=== PATIENT | female | born 1960 | race Caucasian/White ===

== ENCOUNTER 2019-07-28 16:00 | Inpatient (IN) | payer OTHER, SELFPAY ==
[~2019-07-28] VITALS: Ht 162.6 cm; Wt 78.2 kg
--- OUTSIDE RECORDS SUMMARY | 2019-07-28 16:03 | XMS REPORT ---
Author Author MARIBELL Lemus Organization Unknown Address Unknown Phone Care Team Providers Care Assembly Member Name Role Phone Bree Lemus PP Reason for Referral No Reason for Referral was given. History of Present Illness No HPI available. Problems * Normal Routine History And Physical Adult (V70.0); (Active) * Forearm Injury (959.3); (Active) Medication * No Active Medications Allergies and Adverse Reactions * No Known Drug Allergies (Active) Past Medical History * No Significant Medical History Social History * Never A Smoker (Active) Advance Directives * No Advance Directives available. Encounters * AUDIT 07/30/2012
--- OUTSIDE RECORDS SUMMARY | 2019-07-28 16:03 | XMS REPORT ---
Author Author MARIBELL Lemus Organization Unknown Address Unknown Phone Care Team Providers Care Cook Pie Name Role Phone Bree Lemus PP Reason [...] No Advance Directives available. Encounters * AUDIT 05/28/2012
--- OUTSIDE RECORDS SUMMARY | 2019-07-28 16:03 | XMS REPORT | Continuity of Care Document ---
Author Author [facility] Organization [facility] Address Unknown Phone Unavailable Care Team Providers Care Tape Sewing Machine Operator Name Role Phone [employer] Unavailable Un available Problems Problem Status Onset Date Classification Date Reported Comments Source Forearm Injury Active 07/30/2012 [facility] Medications Medication Details Route Status Patient Instructions Ordering Provider Order Date Source No Active Medications No Activ e Medications Active [facility] Allergies, Adverse Reactions, Alerts Substance Category Reaction Severity Reaction type Status Date Reported Comments Source No Known Drug Allergies drug a llergy drug aller gy Active [facility] Immunizations No Data Provided for This Section Results No Data Provided for This Section Pathology Reports No Data Provided for This Section Diagnostic Reports No Data Provided for This Section Consultation Notes No Data Provided for This Section Discharge Summaries No Data Provided for This Section History and Physicals No Data Provided for This Section Vital Signs No Data Provided for This Section Encounters Location Location Details Encounter Type Encounter Number Reason For Visit Attending Provider ADM Date DC Date Status Source AUDIT [id number] 05/28/2012 05/28/2012 [facility] AUDIT [id number] 06/04/2012 06/04/2012 [facility] AUDIT [id number] 07/30/2012 07/30/2012 [facility] Procedures No Data Provided for This Section Assessment and Plan No Data Provided for This Section Plan of Care No Data Provided for This Section Social History Social History Date Source Never A Smoker (Active) 07/30/2012 [facility] Family History No Data Provided for This Section Advance Directives Order Name Results Value Date Source Advance Directives Advance Dir ectives No Advance Directives available. 07/30/2012 [facility] Advance Directives Advance Dir ectives No Advance Directives available. 06/04/2012 [facility] Advance Directives Advance Dir ectives No Advance Directives available. 05/28/2012 [facility] Functional Status No Data Provided for This Section
--- OUTSIDE RECORDS SUMMARY | 2019-07-28 16:03 | XMS REPORT ---
Author Author MARIBELL Lemus Organization Unknown Address Unknown Phone Care Team Providers Care Information Technology Project Manager Name Role Phone Bree Lemus PP Reason [...] No Advance Directives available. Encounters * AUDIT 06/04/2012
[2019-07-28] MEDS ORDERED: SODIUM CHLORIDE 0.9% 1000ML 1,000 ML IV STA (16:30)
--- NOTE | 2019-07-28 16:45 | Emergency Department Note ---
History of Present Illnes History of Present Illness Chief Complaint: General Medicine Complaints History of Present Illness This is a 58 year old female . maria g to ed by c/o ams and fall x 2 days Historian: Patient Arrival Mode: Car Radiation: non-radiation, back, neck, extremity, abdomen, periumbilical, flank, proximal, distal, other Onset quality: sudden Duration (how long): day(s) (2 days) Progression: worsening Context: recent illness, recent surgery, recent immobilization, recent travel, trauma/injury, new medications, hx of DVT/PE, non-compliance w/ medications, other Relieving factors: none Exacerbating factors: none Treatments prior to arrival: none Past Medical/Family History Physician Review I have reviewed the patient's past medical and family history. Any updates have been documented here. Past Medical History Recent Fever: No Clinical Suspicion of Infectio: No New/Unexplained Change in Ment: No Past Medical History: Hypothyroidism Social History Smoking Cessation: Never Smoker Alcohol Use: None Any Illegal Drug Use: No TB Exposure/Symptoms: No Family History Family history of heart diseas: No Other Any Pre-Existing Lines (PICC,: No Review of Systems ROS Narrative Unable to obtain ROS: Unable to obtain due to, altered mental status Review of Systems Constitutional: diaphoresis, fever Respiratory: cough, hemoptysis Psychological: other (ams) Endocrine: excessive sweating Review of other systems All other systems reviewed and negative. Physical Exam Related Data Allergies: Coded Allergies: No Known Allergies (Unverified , 07/28/19) Triage Vital Signs Vital Signs Date Time Temp Pulse Resp B/P (MAP) Pulse Ox O2 Delivery O2 Flow Rate FiO2 07/28/19 16:21 Vital signs reviewed: Yes Physical Exam CONSTITUTIONAL Constitutional: ill appearing HENT HENT: normocephalic, atraumatic HENT L/R: left ext ear normal, right ext ear normal EYES Eyes: conjunctivae normal NECK Neck: supple PULMONARY Pulmonary: breath sounds normal; respiratory distress CARDIOVASCULAR Cardiovascular: tachycardia; normal rate GASTROINTESTINAL Abdominal: nontender, bowel sounds normal GENITOURINARY Genitourinary: exam deferred SKIN Skin: warm, dry; erythema, jaundiced MUSCULOSKELETAL Musculoskeletal: edema, tenderness NEUROLOGICAL pt lethargic PSYCHOLOGICAL Exam - additional comments 58y f presented to ed c/o ams and fall on set sx 2 days ago worse today pt lethargic Results Imaging Impressions Procedure: [id number] CT/CT CERVICAL SPINE WO Exam Date: 07/28/19 Exam Time: 1644 REPORT STATUS: Signed Examination: CT CERVICAL SPINE WO CONTRAST HISTORY:Neck pain and injury after syncope. COMPARISON:None. TECHNIQUE: Multidetector helical axial images were obtained without contrast from the foramen magnum to T1. Coronal and sagittal reformatted images were done. Bone and soft tissue windows were evaluated. Dose modulation, iterative reconstruction, and/or weight based adjustment of the mA/kV was utilized to reduce the radiation dose to as low as reasonably achievable. FINDINGS: Alignment:Normal alignment and lordosis. Vertebrae: Normal height and density. No acute fracture, infection or neoplasm. Disc space heights: Normal height. Caliber of spinal canal: Developmentally normal. Posterior fossa and craniocervical junction: Foramen magnum patent. No Chiari 1 malformation. Soft tissues: No abnormality. Degenerative changes: No disc bulge/ herniation or foraminal or canal stenosis. Visualized lung apices: No abnormalities. IMPRESSION: No acute abnormalities. Signed by: Dr. Adry Barclay M.D. on 07/28/2019 5:41 PM Procedure: [id number] CT/CT BRAIN WO Exam Date: 07/28/19 Exam Time: 1644 REPORT STATUS: Signed Examination: CT head without contrast Clinical Indication: Syncope. Head injury. Technique: Transaxial noncontrast images from the skull base through the vertex were obtained. Sagittal and coronal reformatted images were done. Dose modulation, iterative reconstruction, and/or weight based adjustment of the mA/kV was utilized to reduce the radiation dose to as low as reasonably achievable. Comparison: None. Findings: Scalp: No abnormalities. Bones: Intact. No fractures. No blastic or lytic lesions. Brain sulci: Appropriate for patient's age. Ventricles: Normal in size and configuration. No hydrocephalus. . Extra-axial space: No abnormalities. Parenchyma: There are subtle patchy areas of low-attenuation within subcortical and periventricular white matter, nonspecific, but could represent microvascular ischemic disease. No masses, hemorrhage, or acute cortical based vascular insults. Cortical based, wedge-shaped encephalomalacia of the posterior and inferior right cerebellum. Suprasellar region: No abnormalities. Craniocervical junction: The foramen magnum is patent. No Chiari one malformation. Incidental findings: Atherosclerotic calcification of the cavernous and supraclinoid internal carotid arteries. Partially visualized opacification of the inferior left frontal sinus/left anterior ethmoid air cells. Impression: 1. No acute intracranial finding. 2. Chronic microvascular ischemic change. 3. Chronic right inferior cerebellar infarct Signed by: Dr. Adry Barclay M.D. on 07/28/2019 5:29 PM Dictated By: ADRY MINA MD 28 Transcribed By: MONIKA on 07/28/191728 Procedure: [id number] DX/CHEST SINGLE (PORTABLE) Exam Date: 07/28/19 Exam Time: 1645 REPORT STATUS: Signed Examination: Single AP view of the chest. COMPARISON: None. INDICATION: Passed out twice IMPRESSION: 1. Lines and Tubes: None 2. Lungs are well inflated. Hazy opacity in the right infrahilar region, which may represent atelectasis or aspiration. No consolidation or effusion. 3. Cardiomediastinal silhouette is normal. Pulmonary vasculature is normal. 4. No acute bony abnormalities. Signed by: Dr. Andrews Haile M.D. on 07/28/2019 5:27 PM Dictated By: ANDREWS HAILE MD 26 Transcribed By: MONIKA on 07/28/191726 Procedures 12 Lead ECG Interpretation Hand Cutter Apprentice: Interpreted by ED physician Date: July 28, 2019 Time: 16:40 Prior RESPIRATORY THERAPY MANAGER tracings: reviewed Rhythm: sinus tachycardia Rate: tachycardia BPM: 131 QRS axis: left Critical Care Time Subsequent provider I assumed direction of critical care for this patient from another provider of my specialty. Assessment & Plan Reassessment Reassessment time: 16:44 Reassessment 58y f presented to ed c/o ams /falls x 2 days pt lethargic - ordered lab ekg cxr ct brain cervical uds - medicated w/ ns bolus Assessment & Plan Final Impression: (1) AMS (altered mental status) Assessment & Plan 4O yo F arrived to the ED with AMS, pt discussed and signed out to Dr. Aguilar to follow up labs and imaging Pt will require admission for further work up and management Depart Disposition: ADMITTED Last Vital Signs Date Time Temp Pulse Resp B/P (MAP) Pulse Ox O2 Delivery O2 Flow Rate FiO2 07/28/19 16:21 Home Meds Reported Medications Metoprolol Succinate (TOPROL XL) 50 Mg Tab.er.24h, 50 MG PO BID, #30 TAB 08/08/19 Levothyroxine Sodium (LEVOTHYROXINE SODIUM) 100 Mcg Tablet, 100 MCG PO DAILY@0600 08/08/19 Losartan Potassium (LOSARTAN POTASSIUM) 25 Mg Tablet, 50 MG PO BID 08/08/19 Discontinued Reported Medications [Zolpidem] No Conflict Check 07/28/19 Levothyroxine Sodium (LEVOTHYROXINE SODIUM) 150 Mcg Tablet 07/28/19 Clonidine Hcl (CLONIDINE HCL) 0.3 Mg Tablet 07/28/19 Clonidine Hcl (CLONIDINE HCL) 0.2 Mg Tablet 07/28/19 Medications in the ED Sodium Chloride 1,000 ml @ 0 mls/hr Q0M STAT IV ; Start 07/28/19 at 16:30; Stop 07/28/19 at 16:31; Status DC DIMPLE RUSSO DO July 28, 2019 16:45
[2019-07-28] MEDS ORDERED: CLONIDINE HCL0.2 MG (16:47)
[2019-07-28] MEDS ORDERED: ZOLPIDEM (16:47)
[2019-07-28] MEDS ORDERED: CLONIDINE HCL0.3 MG (16:47)
[2019-07-28] MEDS ORDERED: LEVOTHYROXINE150 MCG (16:47)
--- NOTE | 2019-07-28 17:30 | Diagnostic Imaging Report ---
Examination: Single AP view of the chest. COMPARISON: None. INDICATION: Passed out twice IMPRESSION: 1. Lines and Tubes: None 2. Lungs are well inflated. Hazy opacity in the right infrahilar region, which may represent atelectasis or aspiration. No consolidation or effusion. 3. Cardiomediastinal silhouette is normal. Pulmonary vasculature is normal. 4. No acute bony abnormalities. Signed by: Dr. Sterling Haile M.D. on 07/28/2019 5:27 PM
--- NOTE | 2019-07-28 17:33 | Diagnostic Imaging Report ---
Examination: CT head without contrast Clinical Indication: Syncope. Head injury. Technique: Transaxial noncontrast images from the skull base through the vertex were obtained. Sagittal and coronal reformatted images were done. Dose modulation, iterative reconstruction, and/or weight based adjustment of the mA/kV was utilized to reduce the radiation dose to as low as reasonably achievable. Comparison: None. Findings: Scalp: No abnormalities. Bones: Intact. No fractures. No blastic or lytic lesions. Brain sulci: Appropriate for patient's age. Ventricles: Normal in size and configuration. No hydrocephalus. . Extra-axial space: No abnormalities. Parenchyma: There are subtle patchy areas of low-attenuation within subcortical and periventricular white matter, nonspecific, but could represent microvascular ischemic disease. No masses, hemorrhage, or acute cortical based vascular insults. Cortical based, wedge-shaped encephalomalacia of the posterior and inferior right cerebellum. Suprasellar region: No abnormalities. Craniocervical junction: The foramen magnum is patent. No Chiari one malformation. Incidental findings: Atherosclerotic calcification of the cavernous and supraclinoid internal carotid arteries. Partially visualized opacification of the inferior left frontal sinus/left anterior ethmoid air cells. Impression: 1. No acute intracranial finding. 2. Chronic microvascular ischemic change. 3. Chronic right inferior cerebellar infarct Signed by: Dr. Adry Barclay M.D. on 07/28/2019 5:29 PM
--- NOTE | 2019-07-28 17:44 | Diagnostic Imaging Report ---
Examination: CT CERVICAL SPINE WO CONTRAST HISTORY:Neck pain and injury after syncope. COMPARISON:None. TECHNIQUE: Multidetector helical axial images were obtained without contrast from the foramen magnum to T1. Coronal and sagittal reformatted images were done. Bone and soft tissue windows were evaluated. Dose modulation, iterative reconstruction, and/or weight based adjustment of the mA/kV was utilized to reduce the radiation dose to as low as reasonably achievable. FINDINGS: Alignment:Normal alignment and lordosis. Vertebrae: Normal height and density. No acute fracture, infection or neoplasm. Disc space heights: Normal height. Caliber of spinal canal: Developmentally normal. Posterior fossa and craniocervical junction: Foramen magnum patent. No Chiari 1 malformation. Soft tissues: No abnormality. Degenerative changes: No disc bulge/ herniation or foraminal or canal stenosis. Visualized lung apices: No abnormalities. IMPRESSION: No acute abnormalities. Signed by: Dr. Adry Barclay M.D. on 07/28/2019 5:41 PM
--- NOTE | 2019-07-28 18:15 | NUR ---
educated patient on need for urine sample. Unable to obtain one at this time patient states that she needs hydration first. Initiated a 1000 mL of normal saline and gave patient the call light to press when she can provide a sample. Patient verbalized understanding.
[2019-07-28 18:21] LABS: BASOPHILS % 0.3 % (0.0-1.0); EOSINOPHILS # (AUTO) 3.3 (0.0-0.4); EOSINOPHILS % 27.6 % (0.0-6.0); HEMATOCRIT 37.1 % (34.2-44.1); LYMPHOCYTES # (AUTO) 0.9 (1.0-3.2); LYMPHOCYTES % 7.8 % (18.0-39.1); MEAN CORPUSCULAR HGB CONC 32.3 g/dL (31-35); MEAN CORPUSCULAR VOLUME 98.9 fL (81-99); MONOCYTES % 8.7 % (4.4-11.3); NEUTROPHILS # (AUTO) 6.5 (2.1-6.9); NEUTROPHILS % 55.2 % (38.7-80.0); PLATELET COUNT 347 x10e3/uL (140-360); RED BLOOD COUNT 3.75 x10e6/uL (3.6-5.1); RED CELL DISTRIBUTION WIDTH 13.3 % (11.7-14.4)
[2019-07-28 18:30] LABS: INR 0.94; PROTHROMBIN TIME 13.1 seconds (11.9-14.5)
[2019-07-28 18:37] LABS: ALANINE AMINOTRANSFERASE 65 IU/L (0-55); ALBUMIN 3.6 g/dL (3.5-5.0); ALBUMIN/GLOBULIN RATIO 0.9 (0.8-2.0); ALKALINE PHOSPHATASE 91 IU/L (40-150); ANION GAP 17.7 mmol/L (8-16); BLOOD UREA NITROGEN 35 mg/dL (7-26); BUN/CREATININE RATIO 31 (6-25); CARBON DIOXIDE 22 mmol/L (22-29); CHLORIDE 109 mmol/L (98-107); CREATINE KINASE 49 IU/L (29-168); CREATININE, SERUM 1.13 mg/dL (0.57-1.11); EST GLOMERULAR FILTRATION RATE 49 ML/MIN (60-); GLUCOSE 123 mg/dL (74-118); POTASSIUM 3.7 mmol/L (3.5-5.1); SODIUM 145 mmol/L (136-145)
--- OUTSIDE RECORDS SUMMARY | 2019-07-28 18:48 | XMS REPORT ---
Author Author [facility] Organization [facility] Address [facility] [place] [address] Phone Unavailable Care Team Providers Care Hat Band Attacher Name Role Phone Parrish RUSSO Attphyparrish Unavailable Problems Condition Name Condition Details Condition Category Status Onset Date Resolution Date Last Treatment Date Treating Clinician Comments Source Forearm Injury Fore arm Injury Active 07/30/2012 [facility] Problem Active 2012-07-30 12:22:48 [facility] Allergies, Adverse Reactions, Alerts Allergy Name Allergy Type Status Severity Reaction(s) Onset Date Inacti ve Date Treating Clinician Comments Source No Known Drug Allergies No Known Drug Allergies Active [facility] Social History Social Habit Start Date Stop Date Quantity Comments Source Social History 2012-07-30 12:22:48 2012-07-30 12:22:48 [facility] Medications Ordered Medication Name Filled Medication Name Start Date Stop Da te Current Medication? Ordering Clinician Indication Dosage Frequency Signature (SIG) Comments Components Source No Active Medications 2012-07-30 12:22:48 Yes No Active Medications [facility] Procedures This patient has no known procedures. Encounters Start Date/Time End Date/Time Encounter Type Admission Type [facility] Care Department Encounter ID Source 2019-03-04 16:52:00 2019-03-04 16:52:00 Emergency E [id number] [facility] 2018-09-16 11:08:00 2018-09-16 11:08:00 Emergency E [id number] 2018-06-28 08:55:00 2018-06-28 08:55:00 Emergency E [id number] 2018-06-10 05:05:00 2018-06-10 05:05:00 Emergency E [id number] 2012-07-30 07:23:07 2012-07-30 12:22:48 AUDIT [facility] [id number] [facility] 2012-07-30 07:23:07 2012-07-30 07:22:48 Outpatient [facility] [id number] 2012-06-04 05:52:29 2012-06-04 10:52:10 AUDIT [facility] [id number] [facility] 2012-06-04 05:52:29 2012-06-04 05:52:10 Outpatient [facility] [id number] 2012-05-28 01:19:51 2012-05-28 06:19:33 AUDIT [facility] [id number] [facility] 2012-05-28 01:19:51 2012-05-28 01:19:33 Outpatient [facility] [id number] Results Test Description Test Time Test Comments Results Result Comments Source CT CERVICAL SPINE WO 2019-07-28 17:30:00 [place] [id number] Patient Name: MARIBELL IVY MR #: [id number] : 1960 Age/Sex: 58/F Req #: [id number] Adm Physician: Ordered by: DIMPLE RUSSO DO Report #: [id number] Location: ER Room/Bed: Procedure: [id number] CT/CT CERVICAL SPINE WO Exam Date: 07/28/19 Exam Time: 1645 REPORT STATUS: Signed Examination: CT CERVICAL SPINE WO CONTRAST HISTORY:Neck pain and injury after syncope. COMPARISON:None. TECHNIQUE: Multidetector helical axial images were obtained without contrast from the foramen magnum to T1. Coronal and sagittal reformatted images were done. Bone and soft tissue windows were evaluated. Dose modulation, iterative reconstruction, and/or weight based adjustment of the mA/kV was utilized to reduce the radiation dose to as low as reasonably achievable. FINDINGS: Alignment:Normal alignment and lordosis. Vertebrae: Normal height and density. No acute fracture, infection or neoplasm. Disc space heights: Norm al height. Caliber of spinal canal: Developmentally normal. Posterior fossa and craniocervical junction: Foramen magnum patent. No Chiari 1 malformation. Soft tissues: No abnormality. Degenerative changes: No disc bulge/ herniation or foraminal or canal stenosis. Visualized lung apices: No abnormalities. IMPRESSION: No acute abnormalities. Signed by: Dr. Adry Barclay M.D. on 07/28/2019 5:41 PM Dictated By: ADRY MINA MD 40 Transcribed By: MONIKA on 07/28/191740 COPY TO: DIMPLE RUSSO DO CT BRAIN WO 2019-07-28 17:27:00 [place] [address] Patient Name: MARIBELL IVY MR #: [id number] : 1960 Age/Sex: 58/F Req #: [id number] [facility] Physician: Ordered by: DIMPLE RUSSO DO Report #: [id number] Location: ER Room/Bed: Procedure: [id number] CT/CT BRAIN WO Exam Date: 07/28/19 Exam Time: 1645 REPORT STATUS: Signed Examination: CT head without contrast Clinical Indication: Syncope. Head injury. Technique: Transaxial noncontrast images from the skull base through the vertex were obtained. Sagittal and coronal reformatted images were done. Dose modulation, iterative reconstruction, and/or weight based adjustment of the mA/kV was utilized to reduce the radiation dose to as low as reasonably achievable. Comparison: None. Findings: Scalp: No abnormalities. Bones: Intact. No fractures. No blastic or lytic lesions. Brain sulci: Appropriate for patient's age. Ventricles: Normal in size and configuration. No hydrocephalus. . Extra- axial space: No abnormalities. Parenchyma: There are subtle patchy areas of low-attenuation within subcortical and periventricular white matter, nonspecific, but could represent microvascular ischemic disease. No masses, hemorrhage, or acute cortical based vascular insults. Cortical based, wedge- shaped encephalomalacia of the posterior and inferior right cerebellum. Suprasellar region: No abnormalities. Craniocervical junction: The foramen magnum is patent. No Chiari one malformation. Incidental findings: Atherosclerotic calcification of the cavernous and supraclinoid internal carotid arteries. Partially visualized opacification of the inferior left frontal sinus/left anterior ethmoid air cells. Impression: 1. No acute intracranial finding. 2. Chronic microvascular ischemic change. 3. Chronic right inferior cerebellar infarct Signed by: Dr. Adry Barclay M.D. on 07/28/2019 5:29 PM Dictated By: ADRY MINA MD 28 Transcribed By: MONIKA on 07/28/191728 COPY TO: DMIPLE RUSSO DO CHEST SINGLE (PORTABLE) 2019-07-28 17:25:00 [place] [address] Patient Name: MARIBELL IVY MR #: [id number] : 1960 Age/Sex: 58/F Req #: [id number] Adm Physician: Ordered by: DIMPLE RUSSO DO Report #: [id number] Location: Room/Bed: Procedure: [id number] DX/CHEST SINGLE (PORTABLE) Exam Date: 07/28/19 Exam Time: 1644 REPORT STATUS: Signed Examination: Single AP view of the chest. COMPARISON: None. INDICATION: Passed out twice IMPRESSION: 1. Lines and Tubes: None 2. Lungs are well inflated. Hazy opacity in the right infrahilar region, which may represent atelectasis or aspiration. No consolidation or effusion. 3. Cardiomediastinal silhouette is normal. Pulmonary vasculature is normal. 4. No acute bony abnormalities. Signed by: Dr. Andrews Haile M.D. on 07/28/2019 5:27 PM Dictated By: ANDREWS HAILE MD 26 Transcribed By: MONIKA on 07/28/191726 COPY TO: DIMPLE RUSSO DO
--- OUTSIDE RECORDS SUMMARY | 2019-07-28 18:48 | XMS REPORT | Continuity of Care Document ---
Author Author [facility] Address Unknown Phone Unavailable Care Team Providers Care Garden Tractor Mechanic Name Role Phone [facility] [facility] Unavailable Un available Problems Problem Status Onset Date Classification Date Reported Comments Source Forearm Injury Active 07/30/2012 [facility] Medications Medication Details Route Status Patient Instructions Ordering Provider Order Date Source No Active Medications No Activ e Medications Active [facility] Allergies, Adverse Reactions, Alerts Substance Category Reaction Severity Reaction type Status Date Reported Comments Source No Known Drug Allergies drug a llergy drug aller gy Active [facility] Immunizations No Data Provided for This [...] ADM Date DC Date Status Source AUDIT [id number] 05/28/2012 05/28/2012 [facility] AUDIT [id number] 06/04/2012 06/04/2012 [facility] AUDIT [id number] 07/30/2012 07/30/2012 [facility] Procedures No Data Provided for This Section Assessment and Plan No Data Provided for This Section Plan of Care No Data Provided for This Section Social History Social History Date Source Never A Smoker (Active) 07/30/2012 [facility] Family History No Data Provided for This Section Advance Directives Order Name Results Value Date Source Advance Directives Advance Dir ectives No Advance Directives available. 07/30/2012 [facility] Advance Directives Advance Dir ectives No Advance Directives available. 06/04/2012 [facility] Advance Directives Advance Dir ectives No Advance Directives available. 05/28/2012 [facility] Functional Status No Data Provided for This Section
[2019-07-28 18:56] LABS: SALICYLATE < 5.0 mg/dL (0-30)
[2019-07-28 18:57] LABS: THYROID STIMULATING HORMONE 0.346 uIU/mL (0.350-4.940)
--- NOTE | 2019-07-28 18:59 | NUR ---
report given to Fco BARFIELD
--- NOTE | 2019-07-28 19:04 | NUR ---
Covid swab obtained
[2019-07-28] MEDS ORDERED: METOPROLOL TARTRATE INJ 1 MG/ML VIAL IV ONE ×2 (19:15→22:00)
[2019-07-28] MEDS: METOPROLOL TARTRATE INJ 1 MG/ML VIAL IV PRN (19:31)
--- NOTE | 2019-07-28 19:36 | NUR ---
DR. ZIMMERMAN AT PTS BEDSIDE, NEW ORDERS RECEIVED
[2019-07-28] MEDS ORDERED: IOPAMIDOL 370 MG/ML 200 ML INFUS..BTL INJ ONE (19:41)
[2019-07-28] MEDS ORDERED: SODIUM CHLORIDE 0.9% 50ML 50 ML ONE (19:42)
[2019-07-28] MEDS ORDERED: SODIUM CHLORIDE 0.9% 1000ML 1,000 ML ONE (19:44)
[2019-07-28] MEDS: SODIUM CHLORIDE 0.9% 1000ML 1,000 ML IV SCH (19:50)
--- NOTE | 2019-07-28 19:58 | NUR ---
straight cath performed per orders by shad dumas rn using sterile technique. 150cc slightly hazy yellow urine return noted. pt tolerated procedure s complaint. specimen collected, labelled and sent to lab.
[2019-07-28 20:07] LABS: BILIRUBIN,URINE SMALL (NEGATIVE); CLARITY,URINE SL CLOUDY (CLEAR); COLOR,URINE YELLOW (YELLOW); KETONES,URINE 1+ (NEGATIVE); LEUKOCYTE ESTERASE ,URINE NEGATIVE (NEGATIVE); NITRITE,URINE NEGATIVE (NEGATIVE); PROTEIN,URINE DIPSTICK 1+ (NEGATIVE); URINE UROBILINOGEN 0.2 mg/dL (0.2 - 1)
[2019-07-28 20:14] LABS: AMPHETAMINES SCREEN,URINE NEGATIVE (NEGATIVE); BENZODIAZEPINES SCREEN,URINE POSITIVE (NEGATIVE); PHENCYCLIDINE SCREEN,URINE NEGATIVE (NEGATIVE)
[2019-07-28 20:29] LABS: BACTERIA,URINE MODERATE /HPF; EPITHELIAL CELLS,URINE FEW /LPF; RBC,URINE 0-5 /HPF (0-5)
[2019-07-28 20:30] LABS: AMORPHOUS SEDIMENT,URINE MODERATE (FEW)
--- NOTE | 2019-07-28 20:56 | Diagnostic Imaging Report ---
EXAMINATION: CT scan of the chest with contrast. TECHNIQUE: Spiral CT images of the chest were performed from the lung apices to the level of the adrenal glands after the intravenous administration of 100 cc of Isovue 370. Coronal and sagittal reformatted images were obtained. COMPARISON: Portable chest 07/28/2019 CLINICAL HISTORY:Syncope, weakness, AMS, lung nodule DISCUSSION: LINES/TUBES: None. LUNGS AND AIRWAYS: Linear opacities in the medial right middle lobe, consistent with subsegmental atelectasis or scarring corresponding to the previously visualized opacities on chest x-ray. Linear subsegmental atelectasis are also noted in the lingula (series 3, image 77), and medial left lower lobe (series 3, image 70). 5 mm pulmonary nodule in the lateral right lower lobe (series 3, image 75). No other pulmonary nodules. No masses or consolidation. The airways are clear, without endobronchial lesions. PLEURA: No pneumothorax or pleural effusions. HEART AND MEDIASTINUM: The thyroid gland is normal. Heart size is normal. No pericardial effusion. Aorta is nonaneurysmal. Main pulmonary artery is normal in caliber. Atherosclerotic calcification of the coronary arteries and thoracic aortic arch. LYMPH NODES: There is no mediastinal, hilar or axillary lymphadenopathy. ABDOMEN: Limited contrast-enhanced views of the upper abdomen show no abnormality within the visualized liver, spleen, pancreas, or kidneys. The adrenal glands are normal. Cholecystectomy clips. BONES AND SOFT TISSUES: No aggressive lytic or suspicious sclerotic lesions. Deformity of the lateral aspect of the right third, fourth, fifth, 6 ribs, likely reflecting old healed fractures. Well-circumscribed 1.9 x 1.5 cm fat-containing lesion in the subcutaneous tissues of the right breast (series 2, image 63), which likely represents a lipoma. IMPRESSION: 1. Medial right middle lobe subsegmental atelectasis or scarring, which corresponds to the previously visualized opacity on chest x-ray. No consolidation or effusion. 2. 5 mm pulmonary nodule in the lateral right lower lobe. If patient is low risk, no further follow-up is indicated per Fleischner Society 2017 guidelines. Signed by: Dr. Sterling Haile M.D. on 07/28/2019 8:53 PM
--- NOTE | 2019-07-29 00:40 | History and Physical ---
CHIEF COMPLAINT: A 58-year-old female with a history of hypertension and hypothyroidism, comes in with acute mental status changes. HISTORY OF PRESENT ILLNESS: A 58-year-old female with hypothyroidism and hypertension, was in her usual state of health until the patient was 1 week into staying with her father who has cancer and has been helping out, started to have some mental status changes, noticed by the and also by the daughter. The patient started not to eat and have periods of lapses of memory and this is an ongoing problem. The patient was asked to be taken to the emergency room yesterday and the patient refused it. This morning, the patient had multiple falls and fell with hitting her shoulder and also multiple falls backwards, and the patient came into the emergency room and was admitted to the hospital for acute mental status changes. PAST MEDICAL HISTORY: Hypertension and hypothyroidism. MEDICATIONS: She takes at home are 0.3 mg of clonidine twice a day and levothyroxine 150 mcg once a day. These 2 medicines have been stopped for the last 2 to 3 days according to the . SOCIAL HISTORY: No EtOH. No IV drug abuse. No history of smoking. PAST SURGICAL HISTORY: History of some elbow surgery, other than that negative. FAMILY HISTORY: Noncontributory. REVIEW OF SYSTEMS: Positive for chest pain, which is more substernal and it is more on moving, has also some radiation bilaterally to the back. Abdominal pain also noticed by the patient. No nausea. No vomiting. No constipation. No rectal bleeding. No hematochezia. No hematemesis. The patient has been not drinking enough according to the , and also no polyphagia, no polydipsia, and positive for mental status changes as noted above. PHYSICAL EXAMINATION: VITAL SIGNS: The patient's blood pressure is 173/99, pulse of 120, respirations of 15, pulse oximetry of 100%. HEENT: Normocephalic, atraumatic. Pupils are reactive. CVS: S1 and S2 tachy. ABDOMEN: Tender in the epigastrium. Chest wall tenderness throughout the thoracic rib cage and also in the thoracic and C-spine vertebrae. EXTREMITIES: No clubbing. No cyanosis. Positive for trace edema. LABORATORY VALUES: White count is 11.82, hemoglobin of 12, hematocrit of 37.2, neutrophil count of 55.2. Chemistry shows sodium 145, BUN of 35, creatinine of 1.39, EGFR of 49 with a glucose of 123. ALT and AST are normal. TSH 0.36. BNP was 34.4. Troponin x1 has been pending. IMAGING STUDIES: Cervical spine CT and brain CT shows no acute intracranial findings, chronic microvascular changes and chronic right inferior cerebral infarct. Cervical spine CT shows no disk bulge, herniation, or foraminal stenosis. ASSESSMENT: Ms. Octavia Williamson with: 1. Acute mental status changes. 2. Hypertensive crisis. 3. Multiple falls. 4. Hypothyroidism. PLAN: The patient will be given metoprolol 2.5 IV q.6 hours as needed[address] A CT of the chest has been ordered. CT of the neck, no T-spine abnormalities noted. Also check vitamin B12, ammonia levels, sedimentation rate, CRP. CBC and CMP to be repeated tomorrow. Closely monitor her tachycardia. Echocardiogram will be ordered and also a B12 level will be ordered. Further recommendation per clinical course. We will continue to monitor the patient and a Neurology consult with Dr. Nj will be done too. MD ELVIA Clarke/MODL /[id number]
[2019-07-29] MEDS: METOPROLOL TARTRATE INJ 1 MG/ML VIAL IV PRN ×2 (03:39→21:53)
--- NOTE | 2019-07-29 03:50 | NUR ---
PT NOTED C APPROXIMATELY 2-3 SECONDS OF UNRESPONSIVENESS WHEN TURNING HEAD TO LEFT X 2 EPISODES. PT AWAKE AND ALERT WHEN HEAD STRAIGHTENED. PT STATES THAT DOES NOTED RECALL EVENT. ER MD INFORMED.
--- NOTE | 2019-07-29 04:05 | NUR ---
DR ZIMMERMAN CALLED AND INFORMED THAT PT NOTED C LOC WHEN TURNING HEAD TO LEFT X 2 EPISODES. INFORMED THAT CAROTID DOPPLER ORDERED BY ER MD. NO ADDITIONAL ORDERS AT THIS TIME.
--- NOTE | 2019-07-29 04:27 | NUR ---
PT C/O URGE TO URINATE. PT UNABLE TO VOID X3 ATTEMPTS ON BEDPAN. INFORMED. LAST CATHETER ORDERED. 16 FR LAST CATHETER INSERTED USING STERILE TECHNIQUE. 425CC SLIGHTLY CLOUDY URIEN RETURN NOTED. ER INFORMED.
--- NOTE | 2019-07-29 05:00 | NUR ---
TECH UNABLE TO PERFORM CAROTID DOPPLER DUE EQUIPMENT NOT FUNCTIONING. DR BURNS INFORMED BY TECH. LAND ACQUISITION ANALYST INFORMED.
[2019-07-29] MEDS ORDERED: IOPAMIDOL 370 MG/ML 200 ML INFUS..BTL INJ ONE ×2 (05:58→11:12)
--- NOTE | 2019-07-29 06:00 | NUR ---
DR. ZIMMERMAN UPDATED ON PTS STATUS, NEW ORDER RECEIVED
[2019-07-29 06:34] LABS: BASOPHILS % 0.4 % (0.0-1.0); HEMATOCRIT 32.8 % (34.2-44.1); HEMOGLOBIN 10.5 g/dL (12.0-16.0); LYMPHOCYTES # (AUTO) 1.3 (1.0-3.2); LYMPHOCYTES % 13.2 % (18.0-39.1); MEAN CORPUSCULAR HEMOGLOBIN 32.8 pg (28-32); MEAN CORPUSCULAR VOLUME 102.5 fL (81-99); MONOCYTES # (AUTO) 1.2 (0.2-0.8); NEUTROPHILS # (AUTO) 7.3 (2.1-6.9); PLATELET COUNT 228 x10e3/uL (140-360); RED CELL DISTRIBUTION WIDTH 13.2 % (11.7-14.4)
--- NOTE | 2019-07-29 06:39 | NUR ---
PT NOTED WITH INCREASED DISORIENTATION TO SITUATION. PT REQUESTING TO GO HOME. PT STATES THAT SPOKE WITH AND THAT HE AGREES THAT SHE SHOULD LEAVE. PT UNABLE TO UNLOCK iPHONE, PT UNABLE TO RECALL PASSWORD. PT DOES NOT HAVE ACCESS TO ANY OTHER PHONE DEVICE.
[2019-07-29 06:46] LABS: ALANINE AMINOTRANSFERASE 47 IU/L (0-55); ALBUMIN 3.1 g/dL (3.5-5.0); ALBUMIN/GLOBULIN RATIO 0.9 (0.8-2.0); ALKALINE PHOSPHATASE 75 IU/L (40-150); BLOOD UREA NITROGEN 34 mg/dL (7-26); BUN/CREATININE RATIO 40 (6-25); CALCIUM 8.6 mg/dL (8.4-10.2); CARBON DIOXIDE 22 mmol/L (22-29); CHLORIDE 113 mmol/L (98-107); CREATININE, SERUM 0.84 mg/dL (0.57-1.11); EST GLOMERULAR FILTRATION RATE > 60 ML/MIN (60-); GLUCOSE 100 mg/dL (74-118); SODIUM 145 mmol/L (136-145)
--- NOTE | 2019-07-29 06:50 | NUR ---
PT REFUSING MRA. PT AAOX4. PT SHAKING WHILE TEXTING. PT TACHYCARDIAC AND HYPERTENSIVE, LIPS DRY, LAST SHOWING 20 CC URINE OUTPT. IVF'S RUNNING. PT AWAKE AND ALERT. NOTIFIED ER MD RUSSO OF PT CONDITION, STATES SHE WILL ORDER CT ANGIO. WENT TO EXPLAIN TO PT.
[2019-07-29 07:06] LABS: THYROID STIMULATING HORMONE 0.288 uIU/mL (0.350-4.940)
[2019-07-29 07:29] LABS: PLATELET ESTIMATE ADEQUATE; RBC MORPHOLOGY COMMENT NORMAL
[2019-07-29 07:30] LABS: PLATELET MORPHOLOGY COMMENT FEW EDTA CLUMPING
--- NOTE | 2019-07-29 07:47 | NUR ---
PT IN CT AND NOW REFUSING TESTING. BROUGHT BACK TO ER AND DR ZIMMERMAN AND BOILER TUBE BLOWER NOTIFIED.
--- NOTE | 2019-07-29 07:51 | NUR ---
NOTIFED ER DIRECTOR OF CONCERN FOR PT.
--- NOTE | 2019-07-29 08:05 | NUR ---
MINE INSPECTOR HAS CONTACT NUMBER FOR DAUGHTER TRISTAN [phone]
--- NOTE | 2019-07-29 08:14 | NUR ---
PT STATING SHE WANTS TO LEAVE AMA; PT SPOKE VIA PHONE WITH DR Jacquie ZIMMERMAN AT [phone], HE EXPLAINED THE RISKS AND BENEFITS OF LEAVING VS BEING ADMITTED. PT STATED SHE WOULD LIKE TO SPEAK WITH HER TO SEE IF SHE IS MAKING THE CORRECT DECISION. BRAXTON Stringer RN CALLED TO GET HIS ETA TO THE ER; NO ANSWER SO MESSAGE LEFT.
[2019-07-29] MEDS: SODIUM CHLORIDE 0.9% 1000ML 1,000 ML IV SCH ×2 (08:47→22:25)
--- NOTE | 2019-07-29 09:10 | NUR ---
PT CONTINUES TO REMOVED PULSE OX AND BP CUFF. PT ANXIOUS AND SHAKEY STILL. PT DENIES ANY ETOH/DRUG RX OR ILLEGAL DRUG ABUSE HX. PT DENIES ANY NEURO DISORDERS. PT REMAINS AAOX4, BUT ASKS QUESTIONS LIKE, "I DONT REMEBER WHAT FLOOR IM ON? WHAT FLOOR IS IT?" PT VS REMAIN TACHYCARDIAC.
--- NOTE | 2019-07-29 09:19 | NUR ---
SPOKE WITH PT, INSISTS ON LEAVING AMA; AWAITING SPOUSE TO CALL US OR HER BACK.
--- NOTE | 2019-07-29 10:16 | NUR ---
[facility] [place] [facility] ORDER FOR CTA NECK. RBVO.
--- NOTE | 2019-07-29 10:17 | NUR ---
BROUGHT CHARGE NURSE IN TO TALK WITH PT. PT NOW MORE FORGETFUL AND CONFUSED. WITNESSED BY CHARGE. PT STATED SHE COULD WALK, WHEN ASKED TO GET UP TO WALK, PT STATED "I FORGOT, I CANT WALK."
--- NOTE | 2019-07-29 11:01 | NUR ---
RADIOLOGIT CALLED TO STATE NO ABNORMAL FINDINGS. REPORT WILL BE DICATED SOON WELL.
--- NOTE | 2019-07-29 11:09 | NUR ---
PT'S FATHER JUST CALLED AGAIN TO STATE PT CANNOT COME BACK TO HIS RESIDENCE TO LIVE WHEN SHE IS DISCHARGED. PT IS 85 WITH A BLOOD DISORDER AND WILL BE GOING INTO THE HOSPITAL NEXT WEEK AND NO ONE WILL BE HOME AT HIS ADDRESS AND STATES, "I DON'T THINK SHE SHOULD COME BACK HERE." FATHER IS VERY NICE ON PHONE AND PLEASANT TO DEAL WITH.
[2019-07-29] MEDS ORDERED: SODIUM CHLORIDE 0.9% 100 ML ONE (11:11)
--- NOTE | 2019-07-29 11:19 | NUR ---
RN asked into rm by the patient, pt reported to this RN that she is not in the same rm was in last night.(pt remains in same room) Pt reports her IV is leaking, IV is not leaking. Notified primary nurse of inconsistency with mentation levels.
--- NOTE | 2019-07-29 11:27 | NUR ---
FRONT END SOFTWARE ENGINEER CONSULT PLACED. PT STATES SHE LIVES WITH HER FATHER WHOM CARES FOR D/T HIS ELDERLY ILLNESS AND INABILITY TO CARE FOR HIMSELF...FATHER CALLED STATES HE IS 87 YRS OLD AND DOES NOT WANT PT TO LIVE WITH HIM AFTER HER DISCHARGE. HE LIVES WITH HIS . FATHER STATES PT LIVES IN [place] IN HER OWN HOME AND DOESNT NEED TO BE AT HIS HOUSE. PTS HAS NOT CALLED US OR HER BACK. PT ALSO DOES SEIZURE PSUEDO LIKE BEHAVIOR SHE IS ABLE TO IMMEDIATELY STOP WHEN ARM IS LIFTED. NOTIFIED.
--- NOTE | 2019-07-29 12:07 | Diagnostic Imaging Report ---
Exams: Neck and intracranial CTA History: Syncope. Comparison studies:Noncontrast head CT 07/28/2019 Technique: Axial images were obtained from the thoracic inlet. Coronal and sagittal images reconstructed from the axial data. Multiplanar MIP and 3-D volume rendered images of the carotid bulbs and [place] were reformatted from the axial source data. Intravenous contrast: 100 cc of Omnipaque 300. If present, stenosis is calculated utilizing the NASCET method which calculates the degree of stenosis with reference to the normal lumen of the carotid artery distal to the stenosis. Findings: Neck CTA: Aortic arch and great vessels: Patent, no stenosis. Common carotid arteries: Patent, no abnormalities. Carotid bulbs:, No (0%) stenosis. Internal carotid arteries: Patent, no stenosis bilaterally. Mildly tortuous bilaterally. Vertebral arteries: Patent, no abnormalities. The left vertebral artery arises directly off the aortic arch. Anatomical variants: Retropharyngeal course of the right internal carotid artery at the level of the oral pharynx. Intracranial CTA: Anterior circulation: Internal carotid arteries: Patent with scattered calcified plaque in the cavernous and paraophthalmic segments bilaterally without hemodynamic significant stenosis. Middle cerebral arteries: Patent, no proximal branch occlusion or stenosis. Anterior cerebral arteries: Patent, no proximal branch occlusion or stenosis. Posterior circulation: Vertebral arteries: Patent, no abnormalities. Basilar artery: Patent, no abnormalities. Posterior cerebral arteries: Patent, no proximal branch occlusion or stenosis. Anatomical variants: Acom: Patent. Pcoms: Not well visualized, likely hypoplastic bilaterally. Vertebral arteries: Dominant right vertebral artery. Incidental findings: Left frontal sinus and anterior ethmoids are partially opacified and there is nonspecific secretions in the left sphenoid sinus. Thyroid gland is not well-visualized and may be atrophic, previously ablated or related to prior thyroidectomy in the appropriate clinical setting. IMPRESSION: Neck CTA: 1. Patent carotid and vertebral arteries without stenosis. 2. No (0%) stenosis at the carotid bulbs. Intracranial CTA: 1. No major arterial branch occlusion. 2. Atherosclerosis in the carotid siphons without hemodynamically significant stenosis. Findings discussed with nurse Nurse Tracy in the emergency department at 1118 AM on 07/27/2019. Signed by: Dr. Jackson Boland M.D. on 07/29/2019 12:03 PM
--- NOTE | 2019-07-29 12:20 | NUR ---
patient arrived to room 297. alert, & denies any concerns. admission to follow. wctm.
--- NOTE | 2019-07-29 12:46 | NUR ---
patient's medications collected and placed into her pharmacy bin. 3 bottles- clonidine .2mg, clonidine .3mg, and levothyroxin 150mcg.
[2019-07-29 13:02] VITALS: BP 157/97
[2019-07-29 13:03] VITALS: BP 157/97
[2019-07-29 13:06] VITALS: BP 157/97
--- NOTE | 2019-07-29 14:46 | NUR ---
patient asking to see ER physician or whoever checked her into the hospital. explained that Dr. Gamboa is her physician now that she is out of the ER. she does not want me to contact Dr. Gamboa at this time for the concern. nieves.
[2019-07-29 16:34] VITALS: BP 148/96
--- NOTE | 2019-07-29 19:20 | NUR ---
RECEIVED REPORT FROM DAY NURSE. PATIENT IS RESTING COMFORTABLY IN THE BED. BED IS IN THE LOWEST POSITION AND CALL LIGHT IS WITHIN REACH.
[2019-07-29 20:00] VITALS: BP 167/136
--- NOTE | 2019-07-29 22:00 | NUR ---
PATIENT'S CALLED TO NOTIFY JUNIOR NETWORK ADMINISTRATOR ABOUT HOME MEDICATIONS THAT PATIENT TAKES.
--- NOTE | 2019-07-29 22:51 | Consultation ---
DATE OF CONSULTATION: Neurology Consultation HISTORY OF PRESENT ILLNESS: Ms. Octavia Williamson is a 58-year-old female with hypothyroidism and hypertension, who comes in with confusion. She presented with about a week ago, she is seen here for her father who has cancer and she did have mental status changes evidenced by and daughter. She states that in the past she has had periods of confusion, associated with high stress or illness and she reports that this was , although it is largely resolved at this time. The patient came to emergency room. They requested and in this morning after she fell on her shoulder and is having increasing falls backwards. PAST MEDICAL HISTORY: Includes hypertension, hypothyroidism. Denies seizures. MEDICATIONS AT HOME: , hypertension, levothyroxine, and that she has not really been taking medications at home. SOCIAL HISTORY: Negative for tobacco, alcohol, or drugs. PAST SURGICAL HISTORY: Negative. FAMILY HISTORY: Noncontributory. No history of seizures. REVIEW OF SYSTEMS: The patient admits that she was confused and having memory problems, but she states has resolved now. Otherwise, 14-point review of systems negative for chest pain, headache, nausea, vomiting, dizziness or vertigo. No ataxia, etc. PHYSICAL EXAMINATION: VITAL SIGNS: On admission, vital signs are hypertensive at 172/90, pulse 120. She was saturating 100%. HEENT: Extraocular muscles intact. Face symmetric. Tongue is midline. Speech is clear. Head is nontraumatic. No lacerations or contusions. ABDOMEN: Soft and nontender. CARDIOVASCULAR: Regular rate and rhythm. PULMONARY: Clear to auscultation. There is no ataxia on exam. Strength is 5/5. Reflexes are symmetrical. 2+/5. Toes are downgoing bilaterally. Sensory is grossly intact in all four extremities. ASSESSMENT/PLAN: Seeing the patient for confusion and delirium, etiology not clear. hypertensive encephalopathy. At this time, she is really doing better. I discussed possibly starting antiepileptics, which does not seem appropriate at this time. I will continue supportive care and monitoring, and then outpatient followup and possible epileptogenicity. MD AURE HARE /[id number]
[2019-07-29 23:03] VITALS: BP 148/90
[2019-07-30] VITALS (8 sets, daily range): BP systolic 136–179; BP diastolic 72–111
--- NOTE | 2019-07-30 07:00 | NUR ---
received bedside report. pt is alert resting in bed, no s/s of distress. call light within reach and instructed pt to call RN for help
--- NOTE | 2019-07-30 07:07 | NUR ---
REPORT GIVEN TO DAY NURSE. PATIENT IS RESTING COMFORTABLY IN THE BED. NO DISTRESS NOTED.
--- NOTE | 2019-07-30 08:12 | NUR ---
no acute overnight events 99 127 149/99 resting comfortably no acute issues eomi perrl calm tachycardic cta abd soft speech fluent and coherent no dysarthria motor 5/5 reflexes 1/4 no ataxia metabolic toxic delirium doing well, recovering well no acute neurological issues neurology iwll sign off
[2019-07-30] MEDS ORDERED: METOPROLOL SUCCINATE 25 MG TAB XL PO ONE (09:00)
[2019-07-30] MEDS: ALPRAZOLAM 0.5 MG TAB PO SCH ×2 (09:07→17:00)
--- NOTE | 2019-07-30 09:27 | Progress Note ---
DATE: SUBJECTIVE: The patient is a 58-year-old female, who came in with acute mental status changes. A consult with Dr. Nj has been done for Neurology, questionable epilepsy, antiepileptic agents have been introduced. The patient is currently still confused, has transient loss of mentation and then tangential thought process at this time. OBJECTIVE: VITAL SIGNS: Temperature is 99, pulse of 127, respirations of 18, blood pressure is 149/99, pulse oximetry of 97%. HEENT: Head is normocephalic and atraumatic. Pupils are reactive. No meningeal signs present. NECK: Supple. No JVD present. CVS: S1 and S2 normal. Regular rate and rhythm. ABDOMEN: Nontender and nondistended. EXTREMITIES: No clubbing, no cyanosis, no edema. LABORATORY VALUES: White count is 9.84, down. Hemoglobin is 10.5 and hematocrit of 32.8. MCV is 102. ESR was 69. Coags were normal. Toxicology positive for benzos. Chemistries; sodium 145, potassium 4.0, BUN of 34, creatinine 0.84, magnesium is 2.7. B12 was 818. TSH is 0.288. The patient also has macrocytosis on labs. MICROBIOLOGY: Urine cultures preliminary site shows no growth until now. IMAGING STUDIES: Neck CTA, head CTA, and carotid Doppler which is not done, but neck and head CTA shows patent carotids without stenosis. No major intracranial branch occlusions. Atherosclerosis within the carotid siphons without hemodynamically significant stenosis. ASSESSMENT: Ms. Octavia Williamson with: 1. Acute mental status changes or encephalopathy, origin unknown. 2. Questionable epilepsy. 3. Hyperthyroidism. Refilled back her thyroid medication yesterday. We will cut down the dose by 50. 4. Leukocytosis and elevated sedimentation rate, source unknown, cryptogenic. 5. The patient with delirium versus early-onset dementia. PLAN: We are still awaiting Dr. Nj's consultation. She also may require a Psychiatry evaluation. Continue to monitor the patient otherwise. Check her labs today. Further recommendation per clinical course. We will continue to monitor the patient and get her Physical Therapy to see and assess her ambulatory status. Further recommendation per clinical course and also depending on laboratories to be done today. MD ELVIA Clarke/MODL /[id number]
--- NOTE | 2019-07-30 11:42 | NUR ---
spoke with , he designated Margaux Sofia (a family friend) to be the one visitor for the patient. filled out visitor form and took to front lobby
[2019-07-30] MEDS: SODIUM CHLORIDE 0.9% 1000ML 1,000 ML IV SCH (12:08)
--- NOTE | 2019-07-30 18:30 | NUR ---
CHANGE OF CONDITION: called Dr. Gamboa to notify him that the patient is awake but is non-responsive and does not follow commands. got orders to notify Dr. Nj [id number]: called Dr. Nj and notified him of QUINN, got orders for labs, EEG and to consult psych. orders were put in and call is being placed for EEG
--- NOTE | 2019-07-30 19:06 | NUR ---
notified warehouse logistics coordinator of patient's change of condition. informed them of the orders received from doctors.
--- NOTE | 2019-07-30 19:10 | NUR ---
Bedside report completed with morning nurse. Pt alert to name call, but difficulty understanding speech with pauses in response time. Pt lying in bed HOB 60 degrees. No s/s of pain at this time. Call light within reach. Bed low and locked.
[2019-07-30] MEDS: METOPROLOL TARTRATE INJ 1 MG/ML VIAL IV PRN (19:43)
--- NOTE | 2019-07-30 19:44 | NUR ---
Spoke with Dr. Nj regarding Patient's change in status. Patient with limited to no word phrases and blank stares that lasts a few seconds. Elevated BP 159/111 and HR 124. Temp 99.2. No further orders. Will continue to monitor patient. Bed low and locked.
--- NOTE | 2019-07-30 19:50 | NUR ---
Spoke with Dr. Gamboa regarding patient's change in health and order further orders. BC x2 ordered and Tylenol prn for fever.
[2019-07-30] MEDS ORDERED: ACETAMINOPHEN 325 MG TAB PO PRN (20:00)
[2019-07-30] MEDS ORDERED: ACETAMINOPHEN 1000 MG/100 ML IV PRN (20:15)
--- NOTE | 2019-07-30 20:35 | NUR ---
Patient's BP elevated 179/111, HR 100, T99.7. Spoke with Dr. Gamboa, ordered labs and another dose prn IV metoprolol x1. Patient alert to name call. Skin warm and moist, removed blanket. O2 sat 96% on RA. Turned off overhead lights. Will continue to monitor.
[2019-07-30] MEDS ORDERED: METOPROLOL TARTRATE INJ 1 MG/ML VIAL IV ONE (20:45)
--- NOTE | 2019-07-30 21:30 | NUR ---
Ice packs applied, T 99.6 after IV Ofirmev admin. BP 163/93, HR 102. Patient speaking improved, increased sentences when asked questions, and less pauses between questions. Will continue to monitor.
[2019-07-31] VITALS (8 sets, daily range): BP systolic 123–177; BP diastolic 87–113
[2019-07-31] MEDS: METOPROLOL TARTRATE INJ 1 MG/ML VIAL IV PRN (04:38)
[2019-07-31] MEDS: SODIUM CHLORIDE 0.9% 1000ML 1,000 ML IV SCH ×2 (05:44→08:15)
[2019-07-31] MEDS: LEVOTHYROXINE SODIUM 100 MCG TAB PO SCH (05:44)
[2019-07-31] MEDS ORDERED: LEVOTHYROXINE SODIUM 100 MCG TAB PO SCH (06:00)
[2019-07-31] MEDS ORDERED: LEVOTHYROXINE SODIUM 75 MCG TAB PO SCH (06:00)
[2019-07-31 06:43] LABS: BASOPHILS # (AUTO) 0.1 (0.0-0.1); BASOPHILS % 0.7 % (0.0-1.0); EOSINOPHILS % 0.3 % (0.0-6.0); HEMATOCRIT 34.1 % (34.2-44.1); HEMOGLOBIN 10.6 g/dL (12.0-16.0); LYMPHOCYTES # (AUTO) 1.5 (1.0-3.2); LYMPHOCYTES % 13.6 % (18.0-39.1); MEAN CORPUSCULAR HEMOGLOBIN 31.2 pg (28-32); MEAN CORPUSCULAR HGB CONC 31.1 g/dL (31-35); MEAN CORPUSCULAR VOLUME 100.3 fL (81-99); MONOCYTES % 8.9 % (4.4-11.3); NEUTROPHILS # (AUTO) 8.2 (2.1-6.9); PLATELET COUNT 278 x10e3/uL (140-360); RED CELL DISTRIBUTION WIDTH 12.9 % (11.7-14.4)
--- NOTE | 2019-07-31 07:00 | NUR ---
received bedside report. pt is alert resting in bed, pt is responsive and communicates with nurse. responses are appropriate to questions. no s/s of distress. call light within reach and bed safety in place. Dr. Gamboa made rounds and put in new orders
[2019-07-31 07:05] LABS: ANION GAP 14.5 mmol/L (8-16); BLOOD UREA NITROGEN 31 mg/dL (7-26); BUN/CREATININE RATIO 40 (6-25); CALCIUM 8.8 mg/dL (8.4-10.2); CARBON DIOXIDE 21 mmol/L (22-29); CHLORIDE 113 mmol/L (98-107); CREATININE, SERUM 0.77 mg/dL (0.57-1.11); EST GLOMERULAR FILTRATION RATE > 60 ML/MIN (60-); GLUCOSE 98 mg/dL (74-118); MAGNESIUM 2.3 MG/DL (1.3-2.1); POTASSIUM 4.5 mmol/L (3.5-5.1); SODIUM 144 mmol/L (136-145)
[2019-07-31 07:45] LABS: ERYTHROCYTE SEDIMENTATION RATE 79 mm/hr (0-20)
--- NOTE | 2019-07-31 08:08 | NUR ---
spoke with Dr. Hancock pertaining to consult
[2019-07-31] MEDS: HYDRALAZINE HCL 20 MG/ML VIAL IV PRN (08:15)
[2019-07-31] MEDS: LOSARTAN POTASSIUM 25 MG TAB PO SCH ×2 (08:15→17:05)
--- NOTE | 2019-07-31 08:45 | Progress Note ---
DATE: SUBJECTIVE: This patient came in for acute encephalopathy and mental status changes. The patient is currently still not recovered, has some focal changes including left upper extremity weakness. The patient's strength and mobile phone salesperson are normal. However, the patient does not follow command, slips in and out of cognition. Can talk to her, but she has a tangential thought process, continuing with weakness, and yesterday, the patient has not had anything to eat. Her imaging studies including neck CT, head CT, brain CT, and chest CT have been normal, but with continuum of deterioration. MRI might be warranted. OBJECTIVE: VITAL SIGNS: Temperature is 98.3, pulse oximetry of 97%. HEENT: Normocephalic and atraumatic. Pupils are slightly dilated. CVS: S1 and S2 normal. Regular rate and rhythm. ABDOMEN: Nontender and nondistended. EXTREMITIES: No clubbing. No cyanosis. Trace edema. NEUROLOGIC: The patient has decreased strength in all shoulder girdles and pelvic girdles. Sensory is intact. LABORATORY VALUES: White count is 10.7, hemoglobin 10.6, hematocrit of 34.2. Chemistries are pending. Serotonin levels and prolactin levels are pending. Toxicology, all within normal limits; and serology, frey virus is pending too. Urine is normal. ASSESSMENT: Ms. Octavia Williamson with encephalopathy. We are going to order an MRI today to rule out any other intracranial pathology. MRI of neck and MRI of brain. Follow up with sed rate. PLAN: As mentioned above, MRI today and we will follow up with Dr. Nj for further recommendation. Also, a consult with Psychiatry has been done. B12 levels are normal. Cameron Gamboa MD ASJ/MODL /[id number]
--- NOTE | 2019-07-31 10:38 | NUR ---
pt off unit to get MRI
[2019-07-31] MEDS: METOPROLOL SUCCINATE 50 MG TAB XL PO SCH ×2 (11:41→17:05)
[2019-07-31 11:47] LABS: PHOSPHORUS 3.8 MG/DL (2.3-4.7)
--- NOTE | 2019-07-31 11:56 | Diagnostic Imaging Report ---
MRI BRAIN WO HISTORY: Altered mental status COMPARISON: Head CT 07/28/2019, CTA of the head/neck 07/29/2019 TECHNIQUE: Sagittal T2, axial T2, axial T1, axial T2/FLAIR, axial gradient echo (or susceptibility weighted), coronal T2/FLAIR, and axial diffusion weighted MR images of the brain were obtained without contrast. Motion and noise artifacts obscure some details. DISCUSSION: Scalp/bone marrow: Unremarkable. Brain sulci: Prominent. Ventricles: Compensatory dilatation. Extra-axial spaces: No masses or fluid collections. Parenchyma: Scattered T2/FLAIR hyperintense foci throughout the supratentorial white matter are likely chronic microvascular ischemic changes. There is an old focal cortical infarct in the right posterior cerebellum. Otherwise, no mass, hemorrhage, or acute vascular insults. Vessels: Normal flow voids in major arteries and veins. Sellar/Suprasellar region: No abnormalities. Craniocervical junction: No abnormalities. Incidental findings: Left frontal sinus and frontonasal recess mucosal thickening is nonspecific. Trace right mastoid effusion. IMPRESSION: 1. No acute intracranial abnormalities. 2. Mild to moderate supratentorial chronic microvascular ischemic change. 3. 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 4. Mild generalized cerebral volume loss. Signed by: Dr. Vignesh Lopez M.D. on 07/31/2019 11:53 AM
--- NOTE | 2019-07-31 12:27 | Consultation ---
DATE OF CONSULTATION: Cardiology Consultation REQUESTING PHYSICIAN: Dr. Cameron Gamboa. REASON FOR CONSULTATION: Tachycardia. HISTORY OF PRESENT ILLNESS: Ms. Williamson is a 58-year-old female, who is not able to provide much information for this consultation. However, it is documented that the patient was brought in by family member due to change in mental status and also ongoing confusion. During the time of this consultation, the patient is not able to answer question and repeats what she is told. She is not able to nod yes or nod to any questions or even answer questions appropriately. Consultation completed by review of records and speaking to the nurse. PAST MEDICAL HISTORY: Includes hypertension and hypothyroidism. PAST SURGICAL HISTORY: Negative. SOCIAL HISTORY: Documented to be negative for tobacco, alcohol, or drug use. PHYSICAL EXAMINATION: VITAL SIGNS: Temperature 98.6, pulse 113, respiratory rate 120, blood pressure 177/106, and oxygen saturation 98% on room air. GENERAL: Alert and eyes open, not able to answer questions appropriately. Does not appear to be in any acute distress. NECK: Supple. No JVD noted. LUNGS: Clear to auscultation throughout. No wheezing. No rhonchi or crackles noted. CARDIOVASCULAR: Regular rate and rhythm. No gallops. No murmurs. Tachycardic. ABDOMEN: Soft and nontender. EXTREMITIES: Lower extremity, no edema. 2+ pedal pulses. CARDIOVASCULAR MEDICATIONS: Hydralazine 10 mg q.6 hours p.r.n. IV for hypertension, losartan 50 mg p.o. b.i.d., and metoprolol 2.5 mg q.6 hours p.r.n. for heart rate. LABORATORY DATA: WBC 10.71, hemoglobin 10.6, hematocrit 34.1, and platelets 278. Sodium 144, potassium 4.5, BUN 31, creatinine 0.77, and GFR greater than 60. IMAGING: Brain CT scan on the with no acute intracranial findings, chronic microvascular ischemic changes and chronic right inferior cerebellar infarct. Chest x-ray on admission with lungs well inflated and the cardiomediastinal silhouette is normal. Neck CTA from yesterday with no major arterial branch occlusions, atherosclerosis in the carotid siphons without hemodynamically significant stenosis. Telemetry, sinus tachycardia noted. ASSESSMENT: 1. Sinus tachycardia. 2. Hypertension. 3. Altered mental status with unclear etiology. 4. Leukocytosis, on admission. PLAN: Initiate beta-cesilia. Maintain the patient on telemetry at all time. Echocardiogram ordered to evaluate for any underlying cardiac abnormalities. Maintain the patient on telemetry at all time. Continue workup for altered mental status. Recommend Psychiatry evaluation. We will continue to monitor this patient very closely. Thank you for this consultation and allowing us to participate in this patient's care. Dictated by Bere Porter NP Jonatan Hancock MD JWV/MODL /[id number]
--- NOTE | 2019-07-31 17:29 | NUR ---
pt has had 3 liquid BMs today, stool sample was taken to lab
--- NOTE | 2019-07-31 19:04 | NUR ---
Bedside nursing report completed with morning nurse. Pt alert to name, lying in bed HOB 60 degrees. Denies pain at this time. Call light within reach. Bed low and locked.
[2019-08-01] VITALS (8 sets, daily range): BP systolic 120–150; BP diastolic 70–91
[2019-08-01] MEDS: SODIUM CHLORIDE 0.9% 1000ML 1,000 ML IV SCH (03:40)
[2019-08-01] MEDS: LEVOTHYROXINE SODIUM 100 MCG TAB PO SCH (06:00)
--- NOTE | 2019-08-01 08:19 | Progress Note ---
DATE: SUBJECTIVE: A 58-year-old female came in with acute mental status changes, hyperthyroidism, hypertension, tachycardia. Currently, patient is still confused, slips in and out of discussions. OBJECTIVE: VITAL SIGNS: Temperature is 99.0, pulse of 106, respirations of 18, blood pressure is 126/90, and pulse oximetry of 100%. HEENT: Normocephalic, atraumatic. The patient has a blank stare. CVS: S1 and S2 normal, tachy. ABDOMEN: Soft, nontender, nondistended. EXTREMITIES: No clubbing, no cyanosis, no edema. NEUROLOGIC: Unchanged. The patient has no movement in the upper and lower extremities, but when asked to grasp my fingers, the patient had a good lawn maintenance worker. LABORATORY VALUES: Hemoglobin and hematocrit stable at 10.6 and 34.1, sedimentation rate has risen slightly to 79. Chemistries; sodium of 144, potassium 4.4, BUN of 31, creatinine 0.77, magnesium as high as 2.3, phosphorus of 3.8, calcium was 8.8. Serotonin levels and prolactin levels are pending. Toxicology, nothing abnormal except benzodiazepine which she takes. Serology, C. difficile and coronavirus are pending. IMAGING STUDIES: Done yesterday, the brain MRI showed no acute intracranial abnormalities, mild to moderate supratentorial chronic microvascular changes, old right posterior cerebral cortical infarct and also mild generalized volume loss. MICROBIOLOGY: No growth and urine cultures are negative. ASSESSMENT: Ms. Octavia Williamson with encephalopathy, metabolic versus drug-induced. The patient is off her thyroid medications. Blood pressures are getting better with losartan and beta-blockade. The patient's MRI was negative. Neurology and Cardiology on board. The patient also needs a Psychiatry consult to see for psychogenic reasons for neurological changes. Further recommendation per clinical course. We will continue monitor the patient. The patient's some of her labs are still pending and we will continue monitoring it. MD LILIA ClarkeJ/MODL /[id number]
[2019-08-01] MEDS: LOSARTAN POTASSIUM 25 MG TAB PO SCH ×2 (08:58→16:23)
[2019-08-01] MEDS: METOPROLOL SUCCINATE 50 MG TAB XL PO SCH ×2 (08:58→16:23)
--- NOTE | 2019-08-01 09:15 | NUR ---
over weekend patient became nonresponsive and tachy cardic when asked, patient says she "I do not recall, I do not know and do not care what happened" 98.1 106 150/91 resting comfortably calm and reponsive speech clear, coherent and fluent does not know date, eomi perrl calm tachycardic cta abd soft speech fluent and coherent no dysarthria motor 5/5 reflexes 1/4 no ataxia metabolic toxic delirium vs psychiatric event? no evidence of seizure, no suggetion of epilepsy. her general disregard to the phenomena suggests a possible psych componnet? will monitor
--- NOTE | 2019-08-01 10:50 | Progress Note ---
DATE: Cardiology progress note SUBJECTIVE: The patient has no new complaints this morning. However, she is not able to answer most questions appropriately. OBJECTIVE: VITAL SIGNS: Temperature 98.1, pulse 103, respiratory rate 15, blood pressure 150/91, and oxygen saturation 100% on room air. CARDIOVASCULAR MEDICATIONS: Metoprolol 50 mg p.o. b.i.d., losartan 50 mg p.o. b.i.d., and hydralazine 10 mg q.6 hours p.r.n. LABORATORY DATA: WBC 10.71, hemoglobin 10.6, hematocrit 34.1, and platelets 278. Sodium 144, potassium 4.5, BUN 31, creatinine 0.77, and GFR greater than 60. IMAGING: Brain MRI from yesterday with no acute intracranial abnormalities, mild to moderate supratentorial chronic microvascular ischemic change, old right posterior cerebral cortical infarct, mild generalized cerebral volume loss. TELEMETRY: Sinus tachycardia. PHYSICAL EXAMINATION: GENERAL: Resting comfortably in bed. Does make eye contact, however, not able to follow commands or speak clearly. NECK: Supple. No JVD noted. LUNGS: Clear to auscultation throughout. No wheezing. No rhonchi or crackles. CARDIOVASCULAR: Regular rate and rhythm. Normal S1, S2. No gallops. No murmurs. Tachycardic. ABDOMEN: Soft, nontender. EXTREMITIES: Lower extremity, no edema. 2+ pedal pulses. IMPRESSION: 1. Sinus tachycardia. 2. Hypertension. 3. Altered mental status with unclear etiology. 4. Leukocytosis, on admission. 5. Neurological changes. PLAN: Continue with the above-listed cardiac medications. Recommend neurological workup given above issues. Maintain on telemetry at all times. We will continue to follow this patient very closely. Recent echocardiogram of the heart with normal left ventricular systolic function with ejection fraction 60 to 65%. Diastolic filling pattern for impaired relaxation. Dictated by Bere Porter, LUCERO MD EDITH FloodV/MODL /[id number]
--- NOTE | 2019-08-01 19:15 | NUR ---
BEDSIDE SHIFT REPORT RECEIVED FROM DAY SHIFT RN. PT IN SEMI-FOWLERS POSITION. PT SLOW TO RESPOND WHEN CALL HER NAME. BANDAR 3-2. PT SQUEEZE HAND MIRNA WEAKLY. TELE #[id number] ON. RESPIRATIONS EVEN AND UNLABORED.BOWEL SOUNDS PRESENT. LAST TO GRAVITY DRAINING CLOUDY YELLOW URINE. 20G PIV IN RT FOREARM. NS INFUSING AT 75ML/HR. DRESSING TO LEFT UPPER THIGH DRY AND INTACT.CALL LIGHT WITHIN REACH. BED LOCKED AND IN LOW POSITION. BED ALARM ON.FAMILY CALLED TO SEE IF PT MORE AWAKE.
--- NOTE | 2019-08-01 23:58 | NUR ---
PT TURNED- 2 ASSIST. PT HAD EYES OPEN AND LOOKED AT STAFF. ASKED PT IF NEEDED ANYTHING SHE DID NOT RESPOND. GAVE ORAL CARE WITH LEMON AND GLYCERIN SWAB - ASKED PT IF COULD GIVE ORAL CARE. SHE RESPONDED BRIEFLY " THAT WOULD BE NICE." PT DID NOT TALK AFTER THIS. BED ALARM ON. LAST REMAINS PATENT- URINE CLOUDY YELLOW. PIV 20 G RF NS AT 75 ML/HR.
[2019-08-02] VITALS (8 sets, daily range): BP systolic 127–167; BP diastolic 73–100
--- NOTE | 2019-08-02 06:00 | NUR ---
PT TALKING IN FULL SENTENCES AT TIMES. PT HAD LIQUID STOOL X1. PERICARE GIVEN. LAST CARE GIVEN. THROID MED GIVEN THIS AM ORDERED- CRUSHED MIXED WITH THICKIT LIQUID. PT WATCHING TV.
[2019-08-02] MEDS: LEVOTHYROXINE SODIUM 100 MCG TAB PO SCH (06:07)
--- NOTE | 2019-08-02 07:00 | NUR ---
received bedside report. pt is alert sitting up in bed, no s/s of distress. call light within reach and bed safety in place. pt responded verbally to RN, responses were appropriate
--- NOTE | 2019-08-02 07:38 | Progress Note ---
DATE: SUBJECTIVE: The patient came admitted to the hospital for acute mental status changes, hypothyroidism, and hypertension. Vitals are stable. The patient however has not responded psychologically, has a blank stare on talking. The patient slips in and out of cognition. The patient apparently did talk well to the evening nurse, ate some. The patient had some problems with swallowing and also with physical therapy to work with swallow evaluation. OBJECTIVE: VITAL SIGNS: Temperature is 98.8, pulse of 98, blood pressure is 137/73, pulse oximetry of 95%. HEENT: Normocephalic and atraumatic. Pupils are reactive. The patient has a blank stare as mention. CVS: S1 and S2 normal. ABDOMEN: Nontender, nondistended. EXTREMITIES: No clubbing, no cyanosis, no edema. LABORATORY STUDIES: White count was normal, hemoglobin of 10.6 and hematocrit of 34.1 on July 30. BUN and creatinine were normal on July 30. Serotonin is pending. Prolactin is 8.9. CK was 2.3. ASSESSMENT: Ms. Dudley with, 1. Acute mental status changes. Etiology still unclear. 2. Hypertension, well controlled. 3. Sinus tachycardia better with metoprolol, neurological changes. We will continue monitoring the patient. The patient's echo was normal, the EF was 60% to 65%. Speech to work with swallow and speech evaluation and also will discuss with Neurology progression. A psych consult has been done, who also talked with on disposition and discharge depending on progression. MD ELVIA Clarke/DUNIAL /[id number]
[2019-08-02] MEDS: LOSARTAN POTASSIUM 25 MG TAB PO SCH ×2 (09:00→17:15)
[2019-08-02] MEDS: METOPROLOL SUCCINATE 50 MG TAB XL PO SCH ×2 (09:00→17:15)
[2019-08-02] MEDS: SODIUM CHLORIDE 0.9% 1000ML 1,000 ML IV SCH (12:07)
--- NOTE | 2019-08-02 12:30 | Progress Note ---
DATE: Cardiology Progress Note SUBJECTIVE: Cannot obtain review of systems. OBJECTIVE: VITAL SIGNS: Temperature is 98.1, heart rate is 102, respirations are 16, blood pressure is 127/83, and oxygen saturation 96% on room air. Physical examination per primary team. TELEMETRY: Monitoring revealed sinus tachycardia. CARDIOVASCULAR MEDICATIONS: Reviewed. LABORATORY DATA: Reviewed. IMPRESSION: 1. Sinus tachycardia. 2. Hypertension. 3. Altered mental status. 4. Neurological changes. RECOMMENDATIONS: Continue current cardiovascular medications. Her heart rate is better controlled and can increase metoprolol as tolerated. Ejection fraction was normal on recent echocardiogram. No further cardiac workup is needed at this point in time. DO MARCO Baptiste/DUNIAL /[id number]
--- NOTE | 2019-08-02 15:39 | NUR ---
ST Note: Discussed case with MICHAEL Jacobs, who reported pt took one bite of jello and then spit it out. She also reported pt took meds with water. Pt having procedure at bedside and so unable to see pt. Will return later time permitting.
[2019-08-02] MEDS: HYDRALAZINE HCL 20 MG/ML VIAL IV PRN (21:24)
--- NOTE | 2019-08-02 21:30 | NUR ---
PATIENT IS RESTING IN BED AND IS ALERT, NO SIGNS OF DISTRESS NOTED. PATIENT IS VERBALLY RESPONDING AND VOICES NO PAIN AT THIS TIME. IV FLUID ARE RUNNING AT ORDERED RATE AND PATIENT HAS BEEN TURNED TO BACK. BED IS IN LOWEST POSITION, BOTH SIDE RAILS ARE UP, BED ALARM IS ON, CALL LIGHT IS WITHIN EASY REACH, WILL CONTINUE TO MONITOR.
[2019-08-03] VITALS (8 sets, daily range): BP systolic 111–127; BP diastolic 57–86
[2019-08-03] MEDS: SODIUM CHLORIDE 0.9% 1000ML 1,000 ML IV SCH (06:03)
[2019-08-03] MEDS: LEVOTHYROXINE SODIUM 100 MCG TAB PO SCH (06:55)
--- NOTE | 2019-08-03 06:59 | NUR ---
patient awake and responsive denies any acute overnight events 98 167/64 101 resting comfortably calm and responsive speech clear, coherent and fluent does not know date, eomi perrl calm tachycardic cta abd soft speech fluent and coherent no dysarthria motor 5/5 reflexes /4 no ataxia metabolic toxic delirium vs psychiatric event? no evidence of seizure, no suggestion of epilepsy. - plan to repeat EEG as outpt her general disregard to the phenomena suggests a possible psych component? no acute neuro issues as this time
--- NOTE | 2019-08-03 07:00 | NUR ---
received bedside report. pt is alert lying supine, pt is responsive to RN, but verbal response is disoriented/confused. call light within reach and bed safety in place
[2019-08-03] MEDS: METOPROLOL TARTRATE INJ 1 MG/ML VIAL IV PRN (07:46)
[2019-08-03] MEDS: LOSARTAN POTASSIUM 25 MG TAB PO SCH ×2 (08:36→17:39)
[2019-08-03] MEDS: METOPROLOL SUCCINATE 50 MG TAB XL PO SCH ×2 (08:36→17:40)
--- NOTE | 2019-08-03 08:40 | NUR ---
PT HAS NO PAYOR SOURCE OR BENEFITS, UNABLE TO PLACE PT. FAMILY WILL HAVE TO ASSUME RESPONSIBILITY.
--- NOTE | 2019-08-03 09:23 | Electroencephalogram ---
DATE OF STUDY: REQUESTING PHYSICIAN: STUDY: 30-minute EEG. EEG shows generalized diffuse slow waves in the delta theta pattern with the posterior head region showing prominent high amplitude 4 hertz delta waves at times preceded by smaller sharper discharges. EEG shows anterior beta frequencies and intermittent higher frequency theta patterns in the frontal regions. INTERPRETATION: This EEG is abnormal level 3 for moderate to severe diffuse encephalopathy without evidence of seizure activity theta patterns just after possible underlying age-related dementing syndrome. However, they might be attributed just to diffuse moderate encephalopathy. Repeat EEG would be warranted in this case. MD ANDRESSA HARE/MODLes /[id number]
--- NOTE | 2019-08-03 09:28 | Progress Note ---
DATE: SUBJECTIVE: The patient is a 58-year-old female, who came in with hypertensive episodes, acute mental status changes and also speech difficulty and possibility for brief psychotic episode. The patient's medications include levothyroxine, losartan, and metoprolol at this time. No chest pain reported by the patient. The patient is feeling better, has been eating, swallow evaluation has been evaluated and has been worked on. Currently, no complaints. OBJECTIVE: VITAL SIGNS: Temperature is 97.7, pulse of 101, respirations of 18, blood pressure is 114/75, pulse oximetry of 94%. HEENT: Normocephalic and atraumatic. Pupils reactive. CVS: S1 and S2, tachy. ABDOMEN: Nontender, nondistended. EXTREMITIES: No clubbing, no cyanosis, no edema. The patient has brain MRI, neck CT, head CT, carotid Dopplers, cervical CT, chest x-ray and brain CT were all normal. The patient has been followed by Cardiology and Neurology. No additional recommendations have been given. The patient will need speech training and also will re-consult Psychiatry for possible brief psychotic episodes. Other than that the patient is doing well. I did talk to yesterday and disposition would be to take her home and have her evaluated as an outpatient for neurological problems. At this time speech pathology and speech therapy should be administered. Further recommendation per clinical course. We will discuss the patient with multiple consultants and also get a psychiatric evaluation. Further recommendation per clinical course. For her hypothyroidism, the patient has been taken off her thyroid medication because of over-corrective thyroid then we will restart at a lower dose when the patient will be discharged. MD ELVIA Clarke/MODL /[id number]
--- NOTE | 2019-08-03 12:21 | NUR ---
speech therapy at bedside, recommends NGT for source of nutrition
--- NOTE | 2019-08-03 12:40 | NUR ---
Dr. Guzman (psych) at the bedside
[2019-08-03] MEDS ORDERED: OLANZAPINE 5 MG TAB PO PRN (14:30)
--- NOTE | 2019-08-03 14:50 | Progress Note ---
DATE: Cardiology progress note SUBJECTIVE: The patient is confused, cannot provide me review of systems. PHYSICAL EXAMINATION: VITAL SIGNS: Temperature is 98.1, heart rate is 103, respirations are 16, blood pressure is 111/73, and ox saturation 95% on room air. Physical examination per primary team. CARDIOVASCULAR MEDICATIONS: Reviewed. LABORATORY DATA: Reviewed. TELEMETRY: Monitoring revealed sinus tachycardia. IMPRESSION: 1. Sinus tachycardia. 2. Hypertension. 3. Altered mental status. 4. Encephalopathy. RECOMMENDATIONS: Continue current cardiovascular medications. Heart rate is better controlled. Increase metoprolol as tolerated. Echocardiogram showed preserved left ventricular systolic function. No further cardiac workup is required at this point in time. Altered mental status and encephalopathy treatment per primary team. Chandra Lopes DO BM/MODL /[id number]
--- NOTE | 2019-08-03 16:06 | Consultation ---
DATE OF CONSULTATION: 08/03/2019 Psychiatric consultation. REASON FOR CONSULTATION: To evaluate the patient's psychosis. HISTORY OF PRESENT ILLNESS: The patient is a 58-year-old female, admitted to the hospital for altered mental status. Psychiatric consultation is called to evaluate the patient's psychosis. As per medical record, the patient has history of hypothyroid and hypertension. The patient was doing well and her usual self until a week ago in which she was staying with her father, who had cancer and has been helping him out. Family members noted her mental status change with memory issues. She has been following a lot as well. Dr. Guzman saw the patient today. The patient is alert, awake, and oriented to situation. She knows that she is in the hospital and knows where she is, but does not know why she is hospitalized. She denies any depression. She denies any homicidal or suicidal ideation. She denies any problem with sleep or appetite. She is not agitated. She appears to be somewhat psychotic and confused. As per the nursing staff, the patient has been altered. She claims that she is unable to do things for herself such as walking. PAST PSYCHIATRIC HISTORY: The patient has no past psychiatric history. She denies past suicide attempts. She denies alcohol or drug use. FAMILY HISTORY: Denies. SOCIAL HISTORY: The patient lives with her father. MENTAL STATUS EXAM: The patient is an elderly female. She is alert, awake, and oriented to situation state is passive. Her mood is anxious. Denies any hallucination. Thought process is disorganized. She denies suicidal or homicidal ideation. Insight and judgment are limited to fair. Memory appears to be grossly impaired. CURRENT MEDICATION: 1. Metoprolol. 2. Losartan. 3. Levothyroxine. 4. . 5. Sodium chloride. CURRENT LABS: WBC 10.71, RBC 3.40, hemoglobin 10.6, hematocrit 34.1, platelets 273. Chemistry, sodium 144, potassium 4.5, chloride 113, CO2 of 21, BUN 31, creatinine 0.77. ASSESSMENT: 1. Unspecified psychosis. 2. Rule out schizophrenia. PLAN: 1. Add Zyprexa 5 mg p.o. as needed. 2. Monitor for agitation and psychosis . Dictated by Aydee Barrera PA-C MD THAIS Jackson/ZACH /[id number]
--- NOTE | 2019-08-03 16:20 | NUR ---
Nutrition Intervention Note RD Recommendation(s) for Physician: - Recommend TF of Vital AF with goal rate of 50 ml/hr (to provide 1440 kcal and 90 gm protein) - Water flushes per MD - Diet per MANAGER OF ADMINISTRATION/MD Plan of Care: RD following, monitoring for tolerance and adequacy. TF rec's Nutrition reason for involvement: MD Consult, LOS RD Assessment 08/02: 58 YOF admitted for AMS, seen today per LOS and MD consult for TF rec's. Pt remains mentally altered, unable to obtain hx- pt appears well nourished. Pt with 0% intake recently 2/2 current condition, MANAGER OF ADMINISTRATION following. Chart reviewed. TF rec's provided. Will continue to monitor. Principal Problems/Diagnoses: AMS PMH: HTN, hypothyroidism GI: LBM 08/02- liquid Skin: intact Labs: 08/02: Na 144, K 4.5, BUN 31, Cr 0.77, Gluc 98 Meds: synthroid Ht: 64 in Wt: 175 lb BMI: 30 kg/m2 IBW: 120 lb Malnutrition Evaluation (08/03/19) The patient does not meet criteria for a specified degree of malnutrition at this time. Will re-evaluate at follow-up as appropriate. MICHAELA Energy intake: <50% of estimated energy requirements for >5 days Weight loss: MICHAELA, no wt loss since admit Fat loss: none, ample skinfold thickness to arm Muscle loss: none, shoulder round Supporting Evidence: Fluid accumulation: none Functional Status: not assessed Nutrition Prescription (Diet Order): Cardiac, pureed Estimated Nutritional Needs: 3024-3109 calories/day (22-25 kcal/kg IBW) 82-109 g protein/day (1.5-2 g pro/kg IBW) Diet Adequacy: Not meeting calorie needs, Not meeting protein needs Diet Tolerance: Diet Education Needs Assessment: Diet education not indicated, patient on temporary/transition diet. Nutrition Care Level: moderate Nutrition Diagnosis: Inadequate energy and protein intake related to mentation as evidenced by very poor intake and requiring EN. Goal: Patient will meet 75-100% of estimated needs by follow up Progress: N/A Interventions: -texture, mineral modified diet, Composition, Rate, Route,Recommended Modifications, Collaboration with other providers Monitoring/Evaluation: -Total energy intake, Total protein intake, Formula/Solution, Modified diet Signed: Kaitlin Feng RD, LD, [facility]
[2019-08-03] MEDS: OLANZAPINE 5 MG TAB PO SCH (22:10)
[2019-08-04] VITALS (8 sets, daily range): BP systolic 111–139; BP diastolic 55–85
[2019-08-04] MEDS: SODIUM CHLORIDE 0.9% 1000ML 1,000 ML IV SCH ×2 (02:03→17:38)
[2019-08-04] MEDS: LEVOTHYROXINE SODIUM 100 MCG TAB PO SCH (06:11)
--- NOTE | 2019-08-04 06:15 | NUR ---
PROVIDED LAST CARE VIA CASTILE SOP WIPES. REMOVED BLANKET FOR TEMP 100.3.
--- NOTE | 2019-08-04 07:30 | NUR ---
REPORT GIVEN TO DAYSHIFT NURSE. ALERT WAYNE RESTING IN BED. NO ADVERSE SIGNS OR SYMPTOMS IN STABLE CONDITION. NO SIGNS OF IV INFILTRATION. BED LOCKED AND IN LOW POSITION. CALL LIGHT WITHIN REACH. BED ALARM ACTIVATED.
--- NOTE | 2019-08-04 07:41 | NUR ---
UNABLE TO GET AN AGREEMENT FOR A NONFUNDED PT TO BE ACCEPTED AT A FACILITY, IF THE HOSPITAL WANTS TO DO AN AGREEMENT THEN THE LOCAL FACILITY
[2019-08-04] MEDS: METOPROLOL SUCCINATE 50 MG TAB XL PO SCH ×2 (09:18→17:00)
[2019-08-04] MEDS: LOSARTAN POTASSIUM 25 MG TAB PO SCH ×2 (09:18→17:00)
--- NOTE | 2019-08-04 09:34 | Progress Note ---
DATE: SUBJECTIVE: A 58-year-old female, who came in with acute mental status changes. EEG was done. EEG report shows [id number] diffuse encephalopathy without evidence of seizure activity. The patient has been seen by Psychiatry. Zyprexa has been added and rule out schizophrenia. Diagnosis has been done too. Cardiology seeing the patient. No current recommendations except for the beta blockade and losartan. OBJECTIVE: VITAL SIGNS: Temperature is 100.3, respirations of 18 with , blood pressure is 116/55. HEENT: Normocephalic and atraumatic. The patient is confused still. CVS: S1 and S2 normal. Regular rate and rhythm right now. ABDOMEN: Nontender and nondistended. EXTREMITIES: No clubbing, no cyanosis, no edema. LABORATORY DATA: We will go and repeat hemoglobin and hematocrit today and also white count. Chemistries so far have been normal. Toxicology, except for benzos, everything normal. Serology, C. diff negative. Coronavirus is negative. ASSESSMENT: Ms. Octavia Williamson with: Tachycardia, encephalopathy, acute mental status changes, questionable brief periods of psychosis. PLAN: Continue monitor the patient. The patient has been started on Zyprexa. Needs a speech pathology to work with her. Needs placement and also for right now thyroid medications have been taken off. We are going to repeat her TSH tomorrow and also repeat a CBC and CMP. Further recommendation per clinical course. We will continue to monitor the patient and disposition is placement depending on case management's expertise. MD ELVIA Clarke/DUNIAL /[id number]
--- NOTE | 2019-08-04 11:40 | NUR ---
SPOKE WITH PT'S FATHER AND WHO STATES THEY WOULD PREFER PT TO COME BACK HOME ONCE SHE IS DISCHARGED, THEY HAVE FAMILY THAT WOULD BE ABLE AND WILLING TO TAKE CARE OF HER. WILL INFORM CASE MANAGEMENT.
--- NOTE | 2019-08-04 15:51 | Progress Note ---
DATE: 08/04/2019 Psychiatric Progress Note SUBJECTIVE: The patient evaluated and events noted. The patient is in the room. She is alert and awake. She is disorganized, not making any sense, but she knows the current year is 2019. She does not know where she is. Talks about . The patient denies any suicidal ideation. Denies any hallucination. She has not been combative and has been getting p.r.n. medication. She is receiving her medication night time and no serious side effects seen. Discussed with Case Management regarding her safety discharge planning. Medication adjusted yesterday. ASSESSMENT: 1. Unspecified psychosis. 2. Rule out schizophrenia. PLAN: 1. To continue with Zyprexa 5 mg p.o. at bedtime. 2. Continue Zyprexa 5 mg p.o. as needed. 3. Monitor for agitation and psychosis. 4. Plan to talk to family members for baseline. Dictated by Aydee Barrera PA-C Pieter Guzman MD QTV/MODL /[id number]
--- NOTE | 2019-08-04 17:32 | NUR ---
PT REFUSING ALL MEDICINES AND TREATMENT; PT HAVING VISUAL AND AUDITORY HALLUCINATIONS. PT OTHERWISE IN STABLE CONDITION.
--- NOTE | 2019-08-04 19:04 | NUR ---
WALKING ROUNDS PERFORMED, RECEIVED PT LAYING SEMI FOWLERS IN BED, AAOX1, RR EVEN AND NON-LABORED, ON ROOM AIR. LEFT PT LAYING SEMI FOWLERS IN BED, BED IN LOW LOCKED POSITION, SIDE RAILS UPX2, CALL LIGHT AND PHONE WITHIN REACH. BED ALARM ACTIVATED ZONE 1
--- NOTE | 2019-08-04 19:15 | NUR ---
BEDSIDE SHIFT REPORT GIVEN TO LONG WALL MINING MACHINE TENDER NURSE. PT IN STABLE CONDITION.
[2019-08-04] MEDS: OLANZAPINE 5 MG TAB PO SCH (20:42)
[2019-08-05] VITALS (8 sets, daily range): BP systolic 121–154; BP diastolic 54–96
--- NOTE | 2019-08-05 05:52 | NUR ---
SPOKE WITH MD ZIMMERMAN CONCERNING LEVOTHYROXINE AND MD COUGHLIN STATING WANTED TO HOLD. ORDERS RECEIVED TO HOLD LEVOTHYROXINE TILL AM TSH LEVEL RETURNS.
[2019-08-05] MEDS: LEVOTHYROXINE SODIUM 100 MCG TAB PO SCH (06:00)
[2019-08-05 06:35] LABS: BASOPHILS # (AUTO) 0.1 (0.0-0.1); BASOPHILS % 0.7 % (0.0-1.0); EOSINOPHILS # (AUTO) 0.3 (0.0-0.4); EOSINOPHILS % 3.4 % (0.0-6.0); HEMATOCRIT 32.9 % (34.2-44.1); HEMOGLOBIN 10.4 g/dL (12.0-16.0); LYMPHOCYTES # (AUTO) 1.3 (1.0-3.2); LYMPHOCYTES % 13.6 % (18.0-39.1); MEAN CORPUSCULAR HEMOGLOBIN 31.3 pg (28-32); MEAN CORPUSCULAR HGB CONC 31.6 g/dL (31-35); MEAN CORPUSCULAR VOLUME 99.1 fL (81-99); MONOCYTES % 10.2 % (4.4-11.3); NEUTROPHILS # (AUTO) 6.9 (2.1-6.9); NEUTROPHILS % 71.7 % (38.7-80.0); PLATELET COUNT 262 x10e3/uL (140-360); RED BLOOD COUNT 3.32 x10e6/uL (3.6-5.1)
[2019-08-05 06:51] LABS: ANION GAP 15.5 mmol/L (8-16); BLOOD UREA NITROGEN 25 mg/dL (7-26); BUN/CREATININE RATIO 35 (6-25); CALCIUM 8.5 mg/dL (8.4-10.2); CARBON DIOXIDE 17 mmol/L (22-29); CHLORIDE 111 mmol/L (98-107); CREATININE, SERUM 0.72 mg/dL (0.57-1.11); EST GLOMERULAR FILTRATION RATE > 60 ML/MIN (60-); GLUCOSE 79 mg/dL (74-118); POTASSIUM 3.5 mmol/L (3.5-5.1); SODIUM 140 mmol/L (136-145)
--- NOTE | 2019-08-05 06:59 | NUR ---
BEDSIDE SHIFT CHANGE REPORT RECEIVED FROM ARCHIVES DIRECTOR RN. PT IN STABLE CONDITION. WILL CONTINUE TO MONITOR.
[2019-08-05 07:11] LABS: THYROID STIMULATING HORMONE 0.331 uIU/mL (0.350-4.940)
--- NOTE | 2019-08-05 08:24 | NUR ---
SPOKE WITH DR. ZIMMERMAN ABOUT TSH RESULTS. HE STATES STILL HOLD LEVOTHYROXINE AT THIS TIME.
[2019-08-05] MEDS: METOPROLOL SUCCINATE 50 MG TAB XL PO SCH ×2 (09:00→17:00)
[2019-08-05] MEDS: LOSARTAN POTASSIUM 25 MG TAB PO SCH ×2 (09:00→17:00)
--- NOTE | 2019-08-05 15:35 | Progress Note ---
DATE: 08/05/2019 Psychiatric Progress Note SUBJECTIVE: The patient evaluated and events noted. The patient is in the room. She is calm but confused, unable to answer questions appropriately at times . She denies any suicidal ideation. Denies hallucination. Denies any homicidal ideation. No p.r.n. IM medication has been given. She is . ASSESSMENT: 1. Unspecified psychosis. 2. Rule out schizophrenia. PLAN: 1. To increase Zyprexa. 2. Continue p.r.n. Zyprexa. 3. Monitor for agitation and psychosis. 4. Discussed with Case Management. Dictated by Aydee Barrera PA-C Pieter Guzman MD QTV/MODL /[id number]
[2019-08-05] MEDS: SODIUM CHLORIDE 0.9% 1000ML 1,000 ML IV SCH (18:03)
--- NOTE | 2019-08-05 18:05 | NUR ---
spoke with Dr. Gamboa at bedside. informed him pt has been refusing all medications and refusing to eat. he states we need to consult with Psych. states if we can sedate pt, can place NG tube. awaiting call back from Dr. Guzman.
[2019-08-05] MEDS ORDERED: HALOPERIDOL LACTATE 5 MG/ML VIAL IM PRN (18:30)
[2019-08-05] MEDS ORDERED: LORAZEPAM INJ 2 MG/ML VIAL IM PRN (18:30)
--- NOTE | 2019-08-05 19:51 | NUR ---
RECEIVED PT IN BED CONFUSED .RT WRIST 20G NS AT 50 CC/HR .CALL LIGHT WITH IN REACH .CONTINUE TO MONITOR N
--- NOTE | 2019-08-05 20:56 | Progress Note ---
DATE: SUBJECTIVE: The patient came in with acute mental status changes. EEG showed encephalopathy. The patient is currently still very confused and does not want to eat. Speech Pathology has worked with her and she has pulled out several IVs. She is on Zyprexa and also Psychiatry has seen her at this time. Thyroid levels are still on the higher side. TSH is 0.33. We have held back her levothyroxine. Currently, no chest pains and no shortness of breath as per patient with monosyllable answers. OBJECTIVE: VITAL SIGNS: Temperature is 97.8, pulse of 104, blood pressure is 140/76, respirations of 20, and pulse oximetry of 100%. HEENT: Normocephalic and atraumatic. Pupils are reactive. CVS: S1 and S2, tachy. ABDOMEN: Nontender and nondistended. EXTREMITIES: No clubbing. No cyanosis. No edema. LABORATORY VALUES: Hemoglobin is 10.4, hematocrit of 32.9. Chemistry; sodium 140, potassium 3.5, BUN of 25, and creatinine 0.72. TSH is 0.33. ASSESSMENT: Octavia Walker is with: 1. Acute psychosis. 2. Acute encephalopathy. 3. Hypothyroidism, corrected. 4. Tachycardia. 5. Hypertension. PLAN: Still hold back on the thyroid. TSH is low. Continue with psych medication. If the patient does not eat, an NG tube was recommended, but a very high chance of her pulling it out since she has pulled out the IV. Current medication reviewed. Medicines to be reviewed again and IV or IM medications might be preferable in this case and we will talk with Psychiatry on the same. Further recommendation per clinical course, we will continue to monitor the patient. MD LILIA ClarkeJ/MODL /[id number]
[2019-08-05] MEDS: OLANZAPINE 5 MG TAB PO SCH (21:00)
[2019-08-06] VITALS (8 sets, daily range): BP systolic 115–150; BP diastolic 70–106
[2019-08-06] MEDS: LEVOTHYROXINE SODIUM 100 MCG TAB PO SCH (06:00)
--- NOTE | 2019-08-06 06:39 | NUR ---
PT RESTED DURING THE NIGHT .PT REFUSED NIGHT MEDICATION .CALL LIGHT WITH IN REACH .CONTINUE TO MONITOR
--- NOTE | 2019-08-06 07:00 | NUR ---
BEDSIDE SHIFT REPORT FROM RN LICI. PT DENIES NEEDS AT THIS TIME.
--- NOTE | 2019-08-06 07:10 | NUR ---
BEDSIDE REPORT GIVEN TO THE ONCOMING NURSE
[2019-08-06] MEDS ORDERED: OLANZAPINE 5 MG TAB PO SCH (09:00)
[2019-08-06] MEDS: OLANZAPINE 5 MG TAB PO SCH ×3 (09:37→21:00)
[2019-08-06] MEDS: LOSARTAN POTASSIUM 25 MG TAB PO SCH ×2 (09:37→17:31)
[2019-08-06] MEDS: METOPROLOL SUCCINATE 50 MG TAB XL PO SCH ×2 (09:37→17:31)
--- NOTE | 2019-08-06 09:39 | Progress Note ---
DATE: SUBJECTIVE: The patient had no new events overnight. Still confused. OBJECTIVE: VITALS SIGNS: Temperature 99.3, pulse 99, blood pressure 143/71, sats 100%. GENERAL: No apparent distress, lying in bed, and is confused. CARDIOVASCULAR: Regular rate and rhythm. LUNGS: Clear to auscultation bilaterally. ABDOMEN: Good bowel sounds. Soft, nontender. EXTREMITIES: No clubbing or cyanosis. NEUROLOGIC: Moves all extremities x4. ASSESSMENT/PLAN: 1. Encephalopathy. Continue with current care. Psychiatry has seen the patient to rule out any type of psychiatric evidence. 2. Anemia. Continue to monitor. 3. Hypertension. Continue with current care. 4. Hypothyroidism. Continue with her medication. Please see hospital chart for full details. MD MARINA Cabezas/ZACH /[id number]
[2019-08-06] MEDS: SODIUM CHLORIDE 0.9% 1000ML 1,000 ML IV SCH (14:08)
--- NOTE | 2019-08-06 17:39 | NUR ---
attempted several minutes to encourage pt to participate with therapy but pt steadfast in her refusal..f/u on 08-08-19 Addendum: 08/06/19 at 1740 by Yousif Jimenez REFRIGERATION MECHANIC Amended: Links added.
--- NOTE | 2019-08-06 20:03 | NUR ---
RECEIVED PT IN BED LYING QUIETLY NS 50 CC/HR IS RUNNING .NO ACUTE DISTRESS NOTED .CALL LIGHT WITH IN REACH .CONTINUE TO MONITOR
[2019-08-07] MEDS: LEVOTHYROXINE SODIUM 100 MCG TAB PO SCH ×2 (06:00→13:08)
--- NOTE | 2019-08-07 06:15 | NUR ---
PT REFUSED TO TAKE THE MEDICATION .FAMILY DOES NOT WANT TO GIVE ATIVAN ,AND HALDOL .CALL LIGHT WITH IN REACH .CONTINUE TO MONITOR
--- NOTE | 2019-08-07 07:00 | NUR ---
BEDSIDE SHIFT REPORT FROM RN LICI. PT DENIES NEEDS AT THIS TIME.
--- NOTE | 2019-08-07 07:04 | NUR ---
BEDSIDE REPORT GIVEN TO THE ONCOMING NURSE
[2019-08-07 08:22] VITALS: BP 120/75
[2019-08-07] MEDS: METOPROLOL SUCCINATE 50 MG TAB XL PO SCH ×2 (09:00→13:08)
[2019-08-07] MEDS: LOSARTAN POTASSIUM 25 MG TAB PO SCH ×2 (09:00→16:57)
[2019-08-07] MEDS: OLANZAPINE 5 MG TAB PO SCH ×3 (09:00→20:57)
[2019-08-07] MEDS: SODIUM CHLORIDE 0.9% 1000ML 1,000 ML IV SCH (09:39)
--- NOTE | 2019-08-07 11:00 | NUR ---
SPOKE TO PT'S JACKIE WHOM SAID HE WOULD COME SIT WITH HIS SHORTLY.
[2019-08-07 11:28] VITALS: BP 127/97
--- NOTE | 2019-08-07 14:21 | NUR ---
SPOKE TO PT'S FATHER WHO SAID HE WOULD REACH OUT TO JACKIE, PT'S .
[2019-08-07 15:53] VITALS: BP 140/81
--- NOTE | 2019-08-07 19:25 | NUR ---
RECEIVED PT LYING IN THE BED BED SLEEPING NO IV .PT HAS F/C DRAINING CLEAR YELLOW URINE .CALL LIGHT WITH IN REACH .CONTINUE TO MONITOR
--- NOTE | 2019-08-07 19:38 | NUR ---
PT'S AND FATHER AND FATHERS CAREGIVER SPOKEN TO. DID NOT COME UP TO SEE PT AND WAS INFORMED PT HAD TO BE GIVEN HALDOL FOR AGITATION. FATHERS MEDICAL LABORATORY ASSISTANT DID COME UP TO SEE THE PT AND STAYED FOR 5 MINUTES. PT SLEEPING WHEN ROUNDING WITH RN EDEL COMING IN FOR WIRER BUT EASY TO AROUSE.
[2019-08-07 19:48] VITALS: BP 140/81
[2019-08-07 20:35] VITALS: BP 107/82
[2019-08-08] VITALS (7 sets, daily range): BP systolic 114–120; BP diastolic 47–88
--- NOTE | 2019-08-08 06:23 | NUR ---
PT SLEPT DURING THE SHIFT NS AT 50 CC/HR RUNNING .CALL LIGHT WITH IN REACH .CONTINUE TO MONITOR
--- NOTE | 2019-08-08 06:55 | NUR ---
BEDSIDE REPORT GIVEN TO THE ONCOMING NURSE
--- NOTE | 2019-08-08 07:30 | NUR ---
PT IN BED EYES CLOSED,NO DISTRESS NOTED,NO S/S DISCOMFORT.
[2019-08-08] MEDS: METOPROLOL SUCCINATE 50 MG TAB XL PO SCH ×2 (09:25→17:00)
[2019-08-08] MEDS: OLANZAPINE 5 MG TAB PO SCH (09:25)
[2019-08-08] MEDS: LOSARTAN POTASSIUM 25 MG TAB PO SCH ×2 (09:26→18:18)
[2019-08-08] MEDS ORDERED: LORAZEPAM 0.5 MG TAB PO PRN (10:30)
--- NOTE | 2019-08-08 11:00 | NUR ---
PT IN BED ,HALLUCINATING SEEING PEOPLE IN HER ROOM.DENIES PAIN
[2019-08-08] MEDS ORDERED: OLANZAPINE 5 MG TAB PO SCH (13:00)
--- NOTE | 2019-08-08 13:27 | Progress Note ---
DATE: 08/08/2019 Psychiatric Process Not SUBJECTIVE: The patient is evaluated and events noted. The patient is in the room. She is alert, awake, and oriented to situation. She is calm and cooperative at the time; however, she is hallucinating and seeing somebody in the room who is not there. She is oriented to self, place and year, but at times make bizarre statements, not following the content of the conversation, little bit disorganized. She received p.r.n. Haldol yesterday at 2:00 p.m. No acute event happened last night. Over the weekend, nurse called and asked for medication adjustment due to her agitation and not eating much. Today, nurse reports the patient is doing well and has not been combative or agitated. The patient is being treated by attending. She is adamantly refusing medication. Discussed with Case Management who reported that family members are planning to take her home. ASSESSMENT: 1. Unspecified psychosis. 2. Rule out schizophrenia. 3. Rule out dementia. PLAN: 1. Increase Zyprexa. 2. p.r.n. 3. Add Ativan p.r.n. p.o. 4. Continue Haldol p.r.n. IM. 5. Continue Ativan p.r.n. IM. 6. Monitor for agitation and psychosis. 7. Recommend followup with outpatient psychiatry within a week. Was discharged as family members wanted to take her home. 8. I attempted to call family members twice today to discuss the progress of the patient and also address any concerns, but I was not able to get in touch with anybody. Voicemail was left. 9. Supportive therapy. Dictated by Aydee Barrera PA-C Pieter Guzman MD QTV/MODL /[id number]
[2019-08-08] MEDS: LEVOTHYROXINE SODIUM 100 MCG TAB PO SCH (15:50)
--- NOTE | 2019-08-08 16:56 | NUR ---
Nutrition Intervention Note RD Recommendation(s) for Physician: - Recommend feeding tube placement and initiate TF of Vital AF with goal rate of 50 ml/hr (to provide 1440 kcal and 90 gm protein) - Water flushes per MD - Diet per FIOS LINE INSTALLER/MD, recommend Ensure Enlive TID for adequacy Plan of Care: RD following, monitoring for tolerance and adequacy. TF rec's Nutrition reason for involvement: follow up RD Assessment 08/07: Follow up. Pt remains confused, mentation improving some. Pt continues on diet, no TF at this time, and po intake remains poor. TF rec's and POC discussed with RN. RN to order Ensure. Chart reviewed. Will continue to monitor. 08/02: 58 YOF admitted for AMS, seen today per LOS and MD consult for TF rec's. Pt remains mentally altered, unable to obtain hx- pt appears well nourished. Pt with 0% intake recently 2/2 current condition, FIOS LINE INSTALLER following. Chart reviewed. TF rec's provided. Will continue to monitor. Principal Problems/Diagnoses: AMS PMH: HTN, hypothyroidism GI: LBM 08/06 Skin: intact Labs: 08/04: Na 140, K 3.5, BUN 25, Cr 0.72, Gluc 79, Ca 8.5 08/02: Na 144, K 4.5, BUN 31, Cr 0.77, Gluc 98 Meds: synthroid, haldol, ativan Ht: 64 in Wt: 175 lb BMI: 30 kg/m2 IBW: 120 lb Malnutrition Evaluation (08/03/19) The patient does not meet criteria for a specified degree of malnutrition at this time. Will re-evaluate at follow-up as appropriate. MICHAELA Energy intake: <50% of estimated energy requirements for >5 days Weight loss: MICHAELA, no wt loss since admit Fat loss: none, ample skinfold thickness to arm Muscle loss: none, shoulder round Supporting Evidence: Fluid accumulation: none Functional Status: not assessed Nutrition Prescription (Diet Order): Cardiac, pureed Estimated Nutritional Needs: 0903-0916 calories/day (22-25 kcal/kg IBW) 82-109 g protein/day (1.5-2 g pro/kg IBW) Diet Adequacy: Not meeting calorie needs, Not meeting protein needs Diet Tolerance: tolerating Diet Education Needs Assessment: Diet education not indicated, patient on temporary/transition diet. Nutrition Care Level: high- poor intake x 1 week Nutrition Diagnosis: Inadequate energy and protein intake related to mentation as evidenced by very poor intake and requiring EN. Goal: Patient will meet 75-100% of estimated needs by follow up Progress: not progressing Interventions: -texture, mineral modified diet, Composition, Rate, Route,Recommended Modifications, Collaboration with other providers Monitoring/Evaluation: -Total energy intake, Total protein intake, Formula/Solution, Modified diet Signed: Kaitlin Feng RD, LD, [facility]
--- NOTE | 2019-08-08 17:50 | NUR ---
SHALA ROMAN DTV BY 0200
--- NOTE | 2019-08-08 20:30 | NUR ---
SPOKE WITH MD ZIMMERMAN CONCERNING PATIENT AND VERBALIZED AGREEMENT TO FOLLOW UP WITH PCP AND PSYCH CARE WITHIN ONE WEEK. DC ORDERS.
--- NOTE | 2019-08-08 20:35 | Progress Note ---
DATE: SUBJECTIVE: The patient is a 58-year-old female who came in with acute mental status changes. EEGs showed encephalopathy. Thyroid panel showed hyperthyroidism. Thyroid has been kept on hold right now. We will go ahead and check TSH level. The patient is currently still psychotic, has outburst of talking and then stops. The patient's family does not want us to give her Zyprexa as per Psychiatry recommendation. OBJECTIVE: VITAL SIGNS: Temperature is 97.2, pulse of 109, respirations of 20, and blood pressure is 114/65. HEENT: Normocephalic and atraumatic. Pupils are reactive to light and accommodation. CVS: S1 and S2, tachy. ABDOMEN: Nontender, nondistended. EXTREMITIES: No clubbing, no cyanosis, no edema. LABORATORY DATA: TSH, the last recheck was 0.331 on , we will recheck it today again. Toxicology results were positive for benzos. MEDICATIONS: Reviewed. The patient is currently on losartan, levothyroxine, metoprolol, and Haldol as needed. PLAN: Check her thyroid again. The patient has unspecified psychosis and questionable schizophrenia. We will continue to monitor the patient. Further recommendation per clinical course. Supportive care and also thyroid management if thyroid levels are still on the higher side. MD LILIA ClarkeJ/MODL /[id number]
[2019-08-08] MEDS ORDERED: LOSARTAN POTASS25 MG PO (20:40)
[2019-08-08] MEDS ORDERED: LEVOTHYROXINE100 MCG PO (20:42)
[2019-08-08] MEDS ORDERED: TOPROL XL50 MG PO (20:46)
--- NOTE | 2019-08-08 21:08 | NUR ---
PATIENT DISCHARGED AT THIS TIME. IV TO R WRIST REMOVED AT 2044, CATHETER TIP INTACT, PRESSURE DRESSING APPLIED. SIGNED DISCHARGE PAPERWORK, ONE COPY WITH HIM, ONE IN CHART. NEW PERSCRIPTIONS GIVEN. PATIENT IS TO FOLLOW UP WITH PCP AND OUTPATIENT PSYCHIATRIC CARE WITHIN ONE WEEK. VERBALIZED AGREEMENT AND UNDERSTANDING. ALL PATIENTS BELONGINGS WITH . ESCORTED VIA WHEELCHAIR TO PRIVATE AUTO IN HUSBANDS CARE.
== END 2019-08-08 21:08 | disposition home or self-care (01) | DRG 885 ==
LOC: ER 16:00 → ERHOLD 16:46 → MED/SURG3 07-29 12:02
PROVIDERS: ADMIT Family Medicine; ATTEND Family Medicine
DX: F20.9 Schizophrenia, unspecified (principal); G93.41 Metabolic encephalopathy; I16.9 Hypertensive crisis, unspecified; F05 Delirium due to known physiological condition; E03.9 Hypothyroidism, unspecified; Z91.81 History of falling; R00.0 Tachycardia, unspecified; Z11.59 Encounter for screening for other viral diseases; D64.9 Anemia, unspecified; E05.90 Thyrotoxicosis, unspecified without thyrotoxic crisis or storm; F03.90 Unspecified dementia, unspecified severity, without behavioral disturbance, psychotic disturbance, mood disturbance, and anxiety
CPT/HCPCS: 36415; 51700; 70450; 70496; 70498; 70551; 71045; 71260; 72125; 80048; 80053; 80307; 80320; 80329; 81001; 82140; 82550; 82553; 82607; 82948; 83735; 83880; 84100; 84146; 84260; 84439; 84443; 84479; 84484; 84550; 85025; 85610; 85651; 85730; 86140; 87040; 87086; 87493; 93005; 93306; 93880; 95816; 96361; 97139; 99285; J0360; J1630; J7030; J7050; Q9967; U0002